=== PATIENT | female | born 1995 | race Caucasian/White ===

== ENCOUNTER 2017-12-04 21:17 | Emergency (ER) | payer OTHER, SELFPAY ==
[2017-12-04 21:20] VITALS: BP 114/70; PULSE 93; RESP 18; TEMP 36.6; O2SAT 100; BMI 22.9
[2017-12-04] MEDS: METOCLOPRAMIDE 10 MG/2 ML INJ IV (22:19)
[2017-12-04] MEDS: SODIUM CHLORIDE 0.9% 1,000 ML 1000 ML IV (22:19)
[2017-12-04 22:20] LABS: Add Manual Diff / Slide Review NO; Basophils Percent Auto 0.8 % (0-2); Hematocrit 37.1 % (36-46); Hemoglobin 12.8 g/dL (12.0-16.0); Lymphocytes Percent Auto 23.6 % (25-40); Mean Corpuscular HGB Conc 34.5 % (30-36); Mean Corpuscular Hemoglobin 26.3 PG (26-34); Mean Corpuscular Volume 76.4 fL (80-100); Monocytes Percent Auto 8.1 % (3-14); Neutrophils Absolute Auto 6500 /uL (3000-5900); Neutrophils Percent Auto 66.5 % (50-75); Platelet Count 236 X10^3/uL (150-400); Red Blood Cell Count 4.86 X10^6/uL (4.0-5.2); Red Cell Distribution Width 12.9 % (11.6-14.8); White Blood Cell Count 9.8 X10^3/uL (4.5-11.0)
[2017-12-04 22:31] LABS: Alanine Aminotransferase 45 IU/L (9-52); Albumin 3.8 g/dL (3.5-5.0); Alkaline Phosphatase 147 U/L (38-126); Aspartate Aminotransferase 36 IU/L (14-36); BUN Creatinine Ratio 12.5 (6-22); Bilirubin Total 0.4 mg/dL (0.2-1.3); Calcium 9.3 mg/dL (8.4-10.2); Estimated Glomerular Filt Rate > 60.0 mL/min (>60); Globulin 3.8 g/dL (1.7-4.1); Glucose 78 mg/dL (70-100); HEMOLYSIS < 15 (0-50); Lipase 135 U/L (23-300); Potassium 3.6 mmol/L (3.4-5.1); Sodium 141 mmol/L (137-145); Total Protein 7.6 g/dL (6.3-8.2)
--- NOTE | 2017-12-04 22:55 | ED_ITS ---
HPI - Abdominal Pain General Chief Complaint: Abdominal Pain Stated Complaint: STOMACH PAIN Time Seen by Provider: 12/04/17 21:24 History of Present Illness HPI narrative: HPI 22-year-old at 32 weeks gestation presents for evaluation of 3 months of progressive mild early satiety and sensation of epigastric fullness. Patient continues to take PO, notes gradually increasing discomfort with taking PO, and continues pass flatus and stool at baseline. Denies urinary frequency, dysuria, and is under the active care of her WORK DISTRIBUTOR. Patient has had recent prior ultrasound imaging of her abdomen without interval change in symptoms. [facility] imaging reviewed and notable for abdominal ultrasound dated 10/21/17: * Mild right hydronephrosis, likely related to . No left hydronephrosis. No findings to explain epigastric and left flank pain. * Pancreas: visualize portions of the pancreas aren't sonographically normal. * Gallbladder: no gallstones. No gallbladder wall thickening, pericholecystic fluid or sonographic Egan son. * Liver is normal in size and homogeneous and echo texture. * Spleen is normal in size and homogeneous and echo texture. M/S/F/SocHx notable for: please see HPI; remainder reviewed with patient and in chart. ROS: Negative constitutional, eye, cardiovascular, pulmonary, GI, , MSK, skin , neurologic, psychiatric, endocrine unless noted in the HPI. Exam Gen: Pleasant, non-toxic appearing, resting comfortably. HEENT: NC, AT, PEERL, EOMI. Resp: Clear to auscultation bilaterally, normal work of breathing, no accessory muscle usage. Card: Regular rate and rhythm with no murmurs, rubs, or gallops, extremities warm and well perfused. GI: mild epigastric tenderness, otherwise non-tender to palpation throughout all quadrants, no focal tenderness at McBurney's point, negative Egan's sign, non-distended, no rebound or guarding. : No suprapubic tenderness to palpation. MSK: No visible deformities, strength and tone without visually appreciable deficit. No chest wall tenderness palpation. Skin: Normal color with no visible lesions. Neuro: AO x 3, no facial asymmetry, vision and hearing WNL. Psych: Mood and affect appropriate. Labs / Imaging: WBC 9.8, Hb 12.8, Na 141, K 3.6, total bilirubin 0.4, AST 36, ALT 45, alkaline phosphatase 147, lipase 135 MDM Previous chart, nursing note, labs, imaging, and vitals reviewed. A: 22-year-old at 32 weeks gestation presents for evaluation of 3 months of progressive mild early satiety and sensation of epigastric fullness. DDx: biliary disease (cholelithiasis, choledocholithiasis, cholecystitis, cholangitis), pancreatitis, mass, gastroparesis, delayed gastric emptying secondary to , gastritis, GERD Evaluation: patient with nonsurgical abdominal exam, labs WNL, recent imaging ( reassuringly without interval change in symptoms) without identifiable acute intra-abdominal pathology. Patient given Reglan without appreciable symptom change. Recommended smaller meals, supplementation with insurer, and follow-up with her WORK DISTRIBUTOR. Impression: early satiety in (please reference below for remainder of encounter information) Related Data Home Medications Medication Instructions Recorded Confirmed vit-iron fum-folic ac 1 cap PO QPM #0 09/18/16 [Mynatal] omeprazole 20 mg PO BID #0 10/21/17 polyethylene glycol 3350 [Miralax] 17 gm PO QDAY #0 10/21/17 Allergies Allergy/AdvReac Type Severity Reaction Status Date / Time No Known Drug Allergies Allergy Verified 12/04/17 21:33 [facility] Surgical History Status post delivery (05/28/14) Exam Initial Vital Signs Initial Vital Signs: Vital Signs Temperature 97.9 F 12/04/17 21:20 Pulse Rate 93 H 12/04/17 21:20 Respiratory Rate 18 12/04/17 21:20 Blood Pressure 114/70 12/04/17 21:20 Pulse Oximetry 100 12/04/17 21:20 Course Orders Ordered: ED Orders 12/04/17 22:10 Complete Blood Count AUTO DIFF Stat Comprehensive Metabolic Panel Stat Lipase Stat Discontinued Medications Sodium Chloride (Normal Saline 0.9%) 1,000 mls @ 1,000 mls/hr IV BOLUS ONE Stop: 12/04/17 22:45 Last Admin: 12/04/17 22:19 Dose: 1,000 mls/hr Metoclopramide HCl (Reglan) 10 mg IV NOW ONE Stop: 12/04/17 21:47 Last Admin: 12/04/17 22:19 Dose: 10 mg Vital Signs - 8 hr 12/04/17 21:20 Temperature 97.9 F Pulse Rate 93 H Respiratory Rate 18 Blood Pressure 114/70 Pulse Oximetry 100 MDM - Abdominal Pain Lab Data Result diagrams: 12/04/17 22:10 12/04/17 22:10 Lab Results 12/04/17 12/04/17 Range/Units 22:10 22:10 WBC 9.8 (4.5-11.0) X10^3/uL RBC 4.86 (4.0-5.2) X10^6/uL Hgb 12.8 (12.0-16.0) g/dL Hct 37.1 (36-46) % MCV 76.4 L (80-100) fL MCH 26.3 (26-34) PG MCHC 34.5 (30-36) % RDW 12.9 (11.6-14.8) % Plt Count 236 (150-400) X10^3/uL Neut % (Auto) 66.5 (50-75) % Lymph % (Auto) 23.6 L (25-40) % [place] % (Auto) 8.1 (3-14) % Eos % (Auto) 1.0 L (2-4) % Baso % (Auto) 0.8 (0-2) % Neut # (Auto) 6500 H (1430-7569) /uL Sodium 141 (137-145) mmol/L Potassium 3.6 (3.4-5.1) mmol/L Chloride 104.0 (98-107) mmol/L Carbon Dioxide 24.0 (22-32) mmol/L BUN 5.0 L (7-17) mg/dL Creatinine 0.40 L (0.52-1.04) mg/dL Estimated GFR > 60.0 (>60) mL/min BUN/Creatinine Ratio 12.5 (6-22) Glucose 78 (70-100) mg/dL Calcium 9.3 (8.4-10.2) mg/dL Total Bilirubin 0.4 (0.2-1.3) mg/dL AST 36 (14-36) IU/L ALT 45 (9-52) IU/L Alkaline Phosphatase 147 H (38-126) U/L Total Protein 7.6 (6.3-8.2) g/dL Albumin 3.8 (3.5-5.0) g/dL Globulin 3.8 (1.7-4.1) g/dL Albumin/Globulin Ratio 1.0 (1.0-2.8) Lipase 135 (23-300) U/L Discharge Plan Departure Prescriptions: No Action vit-iron fum-folic ac [Mynatal] 1 EACH capsule 1 cap PO QPM Qty: 0 RF: 0 polyethylene glycol 3350 [Miralax] 17 GM powder in packet 17 gm PO QDAY Qty: 0 RF: 0 omeprazole 40 MG capsule,delayed release(DR/EC) 20 mg PO BID Qty: 0 RF: 0
[2017-12-04 23:11] VITALS: BP 112/69; PULSE 91; RESP 15; O2SAT 98
== END 2017-12-04 23:13 | disposition home or self-care (01) ==
PROVIDERS: Emergency Provider Emergency Medicine; Family Provider Family Medicine; PCP Family Medicine
DX: R68.81 Early satiety (principal); O26.90 Pregnancy related conditions, unspecified, unspecified trimester; Z3A.32 32 weeks gestation of pregnancy
CPT/HCPCS: 36591; 80053; 83690; 85025; 96374; 99282; 99284; J2765

== ENCOUNTER 2017-12-30 11:18 | Outpatient (CLI) | payer OTHER, SELFPAY ==
[2017-12-30 12:22] LABS: Add Manual Diff / Slide Review NO; Basophils Percent Auto 0.5 % (0-2); Hematocrit 37.8 % (36-46); Hemoglobin 12.8 g/dL (12.0-16.0); Lymphocytes Percent Auto 15.9 % (25-40); Mean Corpuscular HGB Conc 33.9 % (30-36); Mean Corpuscular Hemoglobin 26.2 PG (26-34); Mean Corpuscular Volume 77.3 fL (80-100); Monocytes Percent Auto 8.2 % (3-14); Neutrophils Absolute Auto 6400 /uL (3000-5900); Neutrophils Percent Auto 75.4 % (50-75); Platelet Count 213 X10^3/uL (150-400); Red Blood Cell Count 4.88 X10^6/uL (4.0-5.2); Red Cell Distribution Width 13.2 % (11.6-14.8); White Blood Cell Count 8.5 X10^3/uL (4.5-11.0)
[2017-12-30 12:24] LABS: RBC Urine None Seen (0-5/HPF)
[2017-12-30 12:29] LABS: BUN Creatinine Ratio 12.5 (6-22); Blood Urea Nitrogen 5 mg/dL (7-17); Calcium 9.1 mg/dL (8.4-10.2); Carbon Dioxide 21 mmol/L (22-32); Chloride 103 mmol/L (98-107); Estimated Glomerular Filt Rate > 60.0 mL/min (>60); Glucose 79 mg/dL (70-100); HEMOLYSIS < 15 (0-50); Potassium 3.3 mmol/L (3.4-5.1); Sodium 137 mmol/L (137-145)
[2017-12-30 12:41] LABS: Appearance Urine UA CLEAR; Bilirubin Urine UA NEGATIVE (NEGATIVE); Color Urine UA YELLOW; Glucose Urine UA NEGATIVE (Normal); Ketones Urine UA 1+ (NEGATIVE); Leukocyte Esterase Urine UA 1+ (NEGATIVE); Nitrite Urine UA Negative (Negative); Occult Blood Urine UA NEGATIVE (Negative); Protein Urine UA NEGATIVE (Negative); Specific Gravity Urine UA <=1.005 (1.000-1.035); Urobilinogen Urine UA 0.2 E.U./dL (0.2)
[2017-12-30 12:52] LABS: WBC Urine 1-5/HPF (0-5/HPF)
[2017-12-30 12:53] LABS: Bacteria Urine Few (2-10); Culture Indicated Urine Specimen Cultured; Squamous Epithelial Cell Urine 5-10 /HPF
[2017-12-30 13:17] VITALS: BP 107/67; PULSE 100; RESP 18; TEMP 36.1
== END 2017-12-30 13:20 | disposition home or self-care (01) ==
LOC: LABOR 11:26 → OB 01-04 14:17
PROVIDERS: Family Provider Family Medicine; PCP Family Medicine; Visit Provider Family Medicine
DX: Z34.83 Encounter for supervision of other normal pregnancy, third trimester (principal); Z3A.36 36 weeks gestation of pregnancy; R19.7 Diarrhea, unspecified; R52 Pain, unspecified
CPT/HCPCS: 36415; 59025; 59050; 80048; 81001; 85025; 87086; G0378; G0379

== ENCOUNTER 2017-12-31 09:55 | Emergency (ER) | payer OTHER, SELFPAY ==
[2017-12-31 10:02] VITALS: BP 108/79; PULSE 118; RESP 20; TEMP 37; O2SAT 97
--- NOTE | 2017-12-31 11:27 | PC.NURSE ---
To back per charge weigher. Stable and coop with care.
--- NOTE | 2017-12-31 11:38 | ED_ITS ---
HPI - Psych General Chief Complaint: Psychiatric Symptoms Stated Complaint: SUICIDAL THOUGHTS AND DEPRESSION Time Seen by Provider: 12/31/17 11:28 Source: patient Mode of arrival: ambulatory Limitations: no limitations History of Present Illness HPI Narrative: Patient is a 22-year-old female currently 36 weeks feeling some vital and depressed. She does have a longstanding depression. She has been taking fluoxetine during this . In fact it was increased this week. She has also been taking Reglan to help with her stomach which was also increased but just often 1 day this week. Last night she did take and Ambien. She feels extremely groggy this morning and she has never felt of bad as this. She has no specific plan to hurt herself she knows that she does not want to. She was able to tell her mom that she was feeling this way. She had actually does not want to be around her 3-year-old because she keeps crying. She took Benadryl home last week to help her sleep which she said did help her sleep but she was given Ambien and took that instead. She has not been eating or drinking mostly because she feels her stomach does not feel right she has lost 4 lb she has not urinated yet today or had anything to eat today. MD complaint: suicidal ideation, feels depressed and altered mental status Related Data Home Medications Medication Instructions Recorded Confirmed vit-iron fum-folic ac 1 cap PO QPM #0 09/18/16 12/08/17 [Mynatal] omeprazole 20 mg PO BID #0 10/21/17 12/08/17 polyethylene glycol 3350 [Miralax] 17 gm PO QDAY #0 10/21/17 12/08/17 Previous Rx's Medication Instructions Recorded ondansetron 4 mg PO Q6H PRN #30 tab 12/31/17 Allergies Allergy/AdvReac Type Severity Reaction Status Date / Time No Known Drug Allergies Allergy Verified 12/04/17 21:33 Review of Systems Review of Systems All systems reviewed & are unremarkable except as noted in HPI and below Constitutional Denies chills, Reports fatigue, Denies fever(s), Reports lethargy and Reports malaise Cardiovascular Denies chest pain, Denies syncope and Denies lightheadedness Gastrointestinal Gastrointestinal: Reports as per HPI, Reports early satiety, Reports dyspepsia, Reports heartburn, Denies diarrhea and Reports nausea Neurologic Reports confusion and Denies syncope Psychiatric Reports anxiety, Reports confusion, Reports depression, Denies paranoia, Denies homicidal ideation and Reports suicidal ideation Endocrine Reports fatigue [facility] Social History Smoking Status: Never smoker Exam Initial Vital Signs Initial Vital Signs: Vital Signs Temperature 98.6 F 12/31/17 10:02 Pulse Rate 118 H 12/31/17 10:02 Respiratory Rate 20 12/31/17 10:02 Blood Pressure 108/79 12/31/17 10:02 Pulse Oximetry 97 12/31/17 10:02 Const General: cooperative and well developed Nutritional Appearance: well nourished Orientation: alert, awake, oriented x3 and not confused GI Palpation: soft, No guarding and No tender Other: gravid General: No CVA tenderness Skin General: no rashes or lesions noted, No jaundice and No petechiae Psych Appearance: grossly normal Mental Status: mental status grossly normal Speech and Movement: speech and movement normal Mood: congruent mood Affect: normal affect Attitude: cooperative Thought Process: circumstantial Thought Content: suicidality (no specific plan, realizes she doesn't actually want to ) Judgment: judgment good Course Orders Ordered: ED Orders 12/31/17 12:40 Complete Blood Count AUTO DIFF Stat Comprehensive Metabolic Panel Stat 12/31/17 13:30 Urine Culture Stat Urine Microscopic Stat Discontinued Medications Sodium Chloride (Normal Saline 0.9%) 1,000 mls @ 1,000 mls/hr IV BOLUS ONE Stop: 12/31/17 13:32 Last Infusion: 12/31/17 13:40 Dose: 0 mls/hr Admin: 12/31/17 12:45 Dose: 1,000 mls/hr Ondansetron HCl (Zofran Odt) 4 mg PO NOW ONE Stop: 12/31/17 14:08 Last Admin: 12/31/17 14:10 Dose: 4 mg Vital Signs - 8 hr 12/31/17 10:02 12/31/17 13:52 12/31/17 14:18 Temperature 98.6 F Pulse Rate 118 H 71 68 Respiratory Rate 20 16 20 Blood Pressure 108/79 105/58 L Blood Pressure [Left Wrist] 101/63 Pulse Oximetry 97 99 100 MDM - Psych Lab Data Result diagrams: 12/31/17 12:40 06/15/18 12:40 Lab Results 12/31/17 12/31/17 12/31/17 Range/Units 12:40 12:40 13:30 WBC 7.8 (4.5-11.0) X10^3/uL RBC 4.73 (4.0-5.2) X10^6/uL Hgb 12.7 (12.0-16.0) g/dL Hct 36.5 (36-46) % MCV 77.2 L (80-100) fL MCH 26.8 (26-34) PG MCHC 34.7 (30-36) % RDW 13.2 (11.6-14.8) % Plt Count 196 (150-400) X10^3/uL Neut % (Auto) 73.9 (50-75) % Lymph % (Auto) 17.1 L (25-40) % [place] % (Auto) 8.3 (3-14) % Eos % (Auto) 0.2 L (2-4) % Baso % (Auto) 0.5 (0-2) % Neut # (Auto) 5700 (9038-8493) /uL Sodium 138 (137-145) mmol/L Potassium 3.4 (3.4-5.1) mmol/L Chloride 104 (98-107) mmol/L Carbon Dioxide 20 L (22-32) mmol/L BUN 6 L (7-17) mg/dL Creatinine 0.40 L (0.52-1.04) mg/dL Estimated GFR > 60.0 (>60) mL/min BUN/Creatinine Ratio 15.0 (6-22) Glucose 65 L (70-100) mg/dL Calcium 8.9 (8.4-10.2) mg/dL Total Bilirubin 0.8 (0.2-1.3) mg/dL AST 28 (14-36) IU/L ALT 33 (9-52) IU/L Alkaline Phosphatase 184 H (38-126) U/L Total Protein 7.2 (6.3-8.2) g/dL Albumin 3.6 (3.5-5.0) g/dL Globulin 3.6 (1.7-4.1) g/dL Albumin/Globulin Ratio 1.0 (1.0-2.8) Urine RBC None seen (0-5/HPF) Urine WBC 5-10/hpf H (0-5/HPF) Ur Squamous Epith Cells 1-5 /hpf Urine Bacteria Occasional (0-1) (None) Ur Culture Indicated? Specimen cultured Micro UA Comment Not Reportable MDM Narrative Medical decision making narrative: She is able to contract for safety. Our social work has seen spoken with her and given her some resources. I think the Ambien with a big role in how she is feeling today. Though she does have underlying an ongoing depression. I am concerned that she is at risk for depression as well. I stressed that she should get set up with some kind of therapy now. All questions have been addressed patient feels safe going home with her mother all and is given resources as well. Patient also says that she stopped taking her Carafate. I recommend that she start taking her Carafate again to help settle her stomach and allow her to eat. Discharge Plan Departure Patient Disposition: Home, Self-Care Clinical Impression: Depression Discharge Date/Time: 12/31/17 14:24 Interventions: ED Discharge Assessment Last Done: 12/31/17 14:18 Instructions: Depression, Zolpidem Activity Restrictions/Additional Instructions: *You have been diagnosed with depression *What to do: I think your symptoms have been exacerbated by the use of Ambien. Would avoid using this. I recommend Benadryl if needed to sleep. If you are feeling suicidal or having suicidal thoughts: Call: Suicide Hotline: Visit: www.[employer].org Text: 592253 *Continue to take medications as directed -Zofran every 6 hr if needed for nausea or vomiting, this prescription has been sent to [facility] in [place] *Follow up with your primary care provider in 2-3 days *Return to ER if you should have [or] any new, worsening or concerning symptoms Prescriptions: New ondansetron 4 mg tablet,disintegrating 4 mg PO Q6H PRN (Reason: nausea and vomiting) Qty: 30 RF: 0 No Action vit-iron fum-folic ac [Mynatal] 1 EACH capsule 1 cap PO QPM Qty: 0 RF: 0 polyethylene glycol 3350 [Miralax] 17 GM powder in packet 17 gm PO QDAY Qty: 0 RF: 0 omeprazole 40 MG capsule,delayed release(DR/EC) 20 mg PO BID Qty: 0 RF: 0 Referrals: Keagan Hardy MD [Primary Care Provider] -
[2017-12-31] MEDS: SODIUM CHLORIDE 0.9% 1,000 ML 1000 ML IV (12:45)
[2017-12-31 12:52] LABS: Add Manual Diff / Slide Review NO; Basophils Percent Auto 0.5 % (0-2); Eosinophils Percent Auto 0.2 % (2-4); Hematocrit 36.5 % (36-46); Hemoglobin 12.7 g/dL (12.0-16.0); Lymphocytes Percent Auto 17.1 % (25-40); Mean Corpuscular HGB Conc 34.7 % (30-36); Mean Corpuscular Hemoglobin 26.8 PG (26-34); Mean Corpuscular Volume 77.2 fL (80-100); Monocytes Percent Auto 8.3 % (3-14); Neutrophils Absolute Auto 5700 /uL (3000-5900); Neutrophils Percent Auto 73.9 % (50-75); Platelet Count 196 X10^3/uL (150-400); Red Blood Cell Count 4.73 X10^6/uL (4.0-5.2); Red Cell Distribution Width 13.2 % (11.6-14.8); White Blood Cell Count 7.8 X10^3/uL (4.5-11.0)
[2017-12-31 13:03] LABS: Alanine Aminotransferase 33 IU/L (9-52); Albumin 3.6 g/dL (3.5-5.0); Alkaline Phosphatase 184 U/L (38-126); Aspartate Aminotransferase 28 IU/L (14-36); Bilirubin Total 0.8 mg/dL (0.2-1.3); Blood Urea Nitrogen 6 mg/dL (7-17); Calcium 8.9 mg/dL (8.4-10.2); Carbon Dioxide 20 mmol/L (22-32); Chloride 104 mmol/L (98-107); Estimated Glomerular Filt Rate > 60.0 mL/min (>60); Globulin 3.6 g/dL (1.7-4.1); Glucose 65 mg/dL (70-100); HEMOLYSIS < 15 (0-50); Potassium 3.4 mmol/L (3.4-5.1); Sodium 138 mmol/L (137-145); Total Protein 7.2 g/dL (6.3-8.2)
[2017-12-31 13:52] VITALS: BP 101/63; PULSE 71; RESP 16; O2SAT 99
[2017-12-31] MEDS: ONDANSETRON 4 MG ODT PO (14:10)
--- NOTE | 2017-12-31 14:13 | PC.NURSE ---
platform worker s/w pt to see if any needs
[2017-12-31 14:18] VITALS: BP 105/58; PULSE 68; RESP 20; O2SAT 100
[2017-12-31 14:27] LABS: RBC Urine None Seen (0-5/HPF)
[2017-12-31 14:28] LABS: Bacteria Urine Occasional (0-1); Culture Indicated Urine Specimen Cultured; Squamous Epithelial Cell Urine 1-5 /HPF; WBC Urine 5-10/HPF (0-5/HPF)
== END 2017-12-31 14:24 | disposition home or self-care (01) ==
PROVIDERS: Emergency Provider Emergency Medicine; Family Provider Family Medicine; PCP Family Medicine
DX: O99.343 Other mental disorders complicating pregnancy, third trimester (principal); F32.9 Major depressive disorder, single episode, unspecified; Z3A.36 36 weeks gestation of pregnancy
CPT/HCPCS: 36591; 80053; 81003; 81015; 85025; 87086; 96360; 99283

== ENCOUNTER → 2018-01-03 16:44 | Outpatient (REF) | payer OTHER, SELFPAY | LOC: LAB 16:44 | PROVIDERS: Family Provider Family Medicine; PCP Family Medicine; Visit Provider Family Medicine | DX: Z34.90 Encounter for supervision of normal pregnancy, unspecified, unspecified trimester (principal) | CPT/HCPCS: 87081 ==

== ENCOUNTER 2018-01-04 12:33 | Observation (INO) | payer OTHER, SELFPAY ==
--- NOTE | 2018-01-04 12:48 | DI.US.S_ITS ---
PROCEDURE: US OB LIMITED INDICATIONS: growth OUTSIDE/PRIOR DATING DATA: Last menstrual period (LMP): 04/16/17. LMP-based estimated date of delivery (STEFF): 01/21/18. First dating scan (date and location): 06/08/17. Estimated date of delivery (STEFF) from first dating scan: 01/27/18. TECHNIQUE: Real-time scanning was performed of the fetus, with image documentation and biometric measurements. Endovaginal scanning: Not needed for this study COMPARISON: [facility], ABDOMEN COMPLETE, 10/21/2017, 11:42. [facility], OBSTETRICAL LTD, 10/01/2017, 12:24. [facility], OB COMPLETE 14WKS OR MORE, 09/09/2017, 8:14. [facility], OBSTETRICAL LTD, 06/25/2017, 17:15. [facility], OB COMPLETE 14WKS OR MORE, 06/08/2017, 11:08. [facility], OB LIMITED, 12/08/2017, 7:55. FINDINGS: General: A single living intrauterine gestation is present. Presentation: Vertex. Placenta: Placental position is posterior , without previa. Amniotic fluid index: 20.6 cm, normal range is 5-24 cm. heart rate: 143 beats per minute. biometrics: Biparietal diameter: 8.9 cm, 36 weeks 1 day Head circumference: 32.2 cm, 36 weeks 2 days Abdominal circumference: 32.3 cm, 36 weeks 1 day Femur length: The 6.8 cm, 34 weeks 6 days Estimated gestational age from initial scan: 36 weeks 5 days Composite gestational age from present scan: 36 weeks 6 days Estimated weight and percentile: 2793 g, 32nd percentile Measurement variability for biometric dating: +/- 7 days from 14 weeks to 15 weeks 6 days gestation, +/- 10 days from 16 weeks to 21 weeks 6 days gestation, +/- 2 weeks from 22 weeks to 27 weeks 6 days gestation, +/- 3 weeks for 28 weeks gestation or later. weight reference: 4500 g or EFW >90/95% is considered macrosomia or large for gestational age. EFW <10% is small for gestational age. EFW 5% or less is considered intra-uterine growth restriction. Other: Not applicable. IMPRESSION: Appropriate interval growth, no anomaly is suspected. Amniotic fluid index is normal. The delivery date is projected to be centered on 01/27/18. Dictated by: Nick Reeder M.D. on 01/04/2018 at 14:19 Approved by: Nick Reeder M.D. on 01/04/2018 at 14:22
[2018-01-04] MEDS: LACTATED RINGERS 1,000 ML 1000 ML IV (13:20)
[2018-01-04] MEDS: SUCRALFATE 1 GM/10 ML ORAL SUSP PO (13:57)
[2018-01-04] MEDS: METOCLOPRAMIDE HCL 5 MG TABLET PO (13:57)
== END 2018-01-04 14:50 | disposition home or self-care (01) ==
PROVIDERS: Admitting Provider Family Medicine; Family Provider Family Medicine; PCP Family Medicine; Visit Provider Family Medicine
DX: O36.8130 Decreased fetal movements, third trimester, not applicable or unspecified (principal); Z3A.36 36 weeks gestation of pregnancy
CPT/HCPCS: 59025; 76815; 84112; 96360; G0378; G0379

== ENCOUNTER 2018-01-07 20:08 | Observation (INO) | payer OTHER, SELFPAY ==
[2018-01-07] MEDS: LACTATED RINGERS 1,000 ML 1000 ML IV (21:10)
== END 2018-01-07 22:35 | disposition home or self-care (01) ==
LOC: LABOR 20:12
PROVIDERS: Admitting Provider Family Medicine; Family Provider Family Medicine; PCP Family Medicine; Visit Provider Family Medicine
DX: O36.8130 Decreased fetal movements, third trimester, not applicable or unspecified (principal); Z3A.36 36 weeks gestation of pregnancy
CPT/HCPCS: 59025; 96360; G0378; G0379

== ENCOUNTER 2018-01-13 05:40 | Inpatient (IN) | payer OTHER, SELFPAY ==
[2018-01-13] VITALS (7 sets, daily range): BP systolic 77–142; BP diastolic 38–96; PULSE 65–72; RESP 15–19; TEMP 36–36.8; O2SAT 98–100
[2018-01-13] MEDS: LACTATED RINGERS 1,000 ML 400 ML IV ×2 (06:00→08:57)
[2018-01-13 06:43] LABS: Add Manual Diff / Slide Review NO; Basophils Percent Auto 0.5 % (0-2); Eosinophils Percent Auto 0.3 % (2-4); Hemoglobin 12.7 g/dL (12.0-16.0); Mean Corpuscular HGB Conc 34.4 % (30-36); Mean Corpuscular Hemoglobin 26.6 PG (26-34); Mean Corpuscular Volume 77.5 fL (80-100); Neutrophils Absolute Auto 3800 /uL (3000-5900); Neutrophils Percent Auto 65.2 % (50-75); Platelet Count 208 X10^3/uL (150-400); Red Blood Cell Count 4.77 X10^6/uL (4.0-5.2); Red Cell Distribution Width 13.4 % (11.6-14.8); White Blood Cell Count 5.9 X10^3/uL (4.5-11.0)
[2018-01-13] MEDS: LACTATED RINGERS 1,000 ML 100 ML IV (07:00)
--- NOTE | 2018-01-13 07:47 | P.HPOB_ITS ---
OB HPI History of Present Illness Chief complaint: [id number] Narrative: Harper Moore is a 22 year old female who presents for repeat section. Patient has had a complicated and difficult . Started with abdominal pain around 20 weeks. Was unable to keep much food down. Weight gain has been minimal specifically with some weight loss over the last 4-6 weeks. Ultrasounds have been normal. She has been on reflux precautions PPIs Carafate and Reglan. She had a scope which showed duodenal irritation approximately 30 weeks. Has been difficult to control and has had minimal intake. Borderline donned hydrated throughout most of the . Patient over the last 6-8 weeks probably with a combination of being and with her abdominal pain has become increasingly anxious depressed. She was began on citalopram approximately 6 weeks ago. She did not really want to stay on that would like to switch to Prozac was switched to Prozac she had been on that for approximately 10 days when she presented to the emergency room with suicidal ideations. She was evaluated and felt to be safe was sent home. I had seen her approximately 2 and half weeks ago when she was continuing to be suicidal. I discussed case with psychiatrist who at that time recommended admission. We had re-evaluated her 24 hr later and she was felt to be safe. She did not have any active plan and had good support at home. Continued to discuss with the psychiatrist. She seems to slowly improved and now that we have set up her she seems better. Psychiatrist feels the best course of action is to deliver nun deal with her on the other side. Knowing there is some risk of depression patient currently is anxious but less depressed. Does not have suicidal ideations but last week did. No plan. Good support at. Patient has had a history of anxiety but not depression. She was treated with Prozac in the past. No family history of such. Patient has had no leaking fluid. No bleeding. No complications. Ultrasound showed a small infant without any other changes. labs otherwise unremarkable. She is B positive. Antibody screen negative. She had a genetic screen which was normal. Showed a male . No other significant changes or problems or glucose test was Patient's previous [id number] weeks for failure to progress 7 lb 14 oz female Other past medical history negative. Medications Prozac 20 mg q.day. 40 mg omeprazole. Carafate 1 g q.i.d.. Allergies none. Past surgical history as above. Evaluation Evaluation Laboratory results: Laboratory Tests 01/13/18 01/13/18 06:15 06:15 WBC 5.9 RBC 4.77 Hgb 12.7 Hct 37.0 MCV 77.5 L MCH 26.6 MCHC 34.4 RDW 13.4 Plt Count 208 Neut % (Auto) 65.2 Lymph % (Auto) 24.0 L [place] % (Auto) 10.0 Eos % (Auto) 0.3 L Baso % (Auto) 0.5 Neut # (Auto) 3800 Blood Type B Positive Antibody Screen Negative [facility] Social History Smoking Status: Never smoker Meds Home Medications Medication Instructions Recorded Confirmed Type vit-iron fum-folic ac 1 cap PO QPM #0 09/18/16 01/13/18 History [Mynatal] omeprazole 20 mg PO BID #0 10/21/17 01/13/18 History fluoxetine [Prozac] 40 mg PO DAILY 01/07/18 01/13/18 History metoclopramide HCl [Reglan] 5 mg PO PRN PRN 01/07/18 01/13/18 History sucralfate [Carafate] 5 ml PO TID 01/07/18 01/13/18 History Allergies Allergy/AdvReac Type Severity Reaction Status Date / Time No Known Drug Allergies Allergy Verified 12/04/17 21:33 Exam Narrative Exam Narrative: Alert female in no acute distress. Lungs are clear. Heart regular rate and rhythm. Abdomen is soft positive bowel sounds nontender. Gravid. Vertex. Estimated weight 6 and 0.5 lb. Extremities without cyanosis clubbing edema. Neurologic exam is normal. Today she is interactive and smiling. Good eye contact. Objective Labs Result Diagrams: 01/13/18 06:15 Labs: Laboratory Results - last 24 hr 01/13/18 01/13/18 06:15 06:15 WBC 5.9 RBC 4.77 Hgb 12.7 Hct 37.0 MCV 77.5 L MCH 26.6 MCHC 34.4 RDW 13.4 Plt Count 208 Neut % (Auto) 65.2 Lymph % (Auto) 24.0 L [place] % (Auto) 10.0 Eos % (Auto) 0.3 L Baso % (Auto) 0.5 Neut # (Auto) 3800 Blood Type B Positive Antibody Screen Negative Assessment and Plan Plan: Plan: With the long discussions with psychiatrist. Due to her complicated history their recommendation is for delivery and then to deal with her on individual basis once her. Baby is not round. No other changes. Patient otherwise has no significant new changes or complaints. We will proceed for section and watch closely continue her usual medicines ending dictation
[2018-01-13] MEDS: CITRIC ACID/SODIUM CITRATE 30 ML SOLUTION PO (07:50)
[2018-01-13] MEDS: CEFOTETAN 2 GM/50 ML PIGGYBACK IV (08:05)
--- NOTE | 2018-01-13 08:46 | SUR.OPER ---
Supine on Padded OR bed, head on pillow, safety belt at thigh, arms secured on padded arm boards at <90 degrees abduction. Bump under right buttock. Legs uncrossed with pillow under knees, gel pad to heels, tape over blanket to lower legs.
[2018-01-13] MEDS: ACETAMINOPHEN IV 1,000 MG/100 ML VIAL 400 MG IV (08:50)
--- NOTE | 2018-01-13 08:54 | SUR.OPER ---
PLACENTA AND CORD BLOOD LABELED AND SENT WITH L&D NURSE
[2018-01-13] MEDS: ONDANSETRON 4 MG/2 ML INJ IV (09:26)
--- NOTE | 2018-01-13 09:26 | PM.OP.1 ---
Operative Date/Time/Diagnoses - Date of procedure: 01/13/18 Time of procedure: 09:26 Pre-op diagnosis: Thirty-eight week intrauterine , severe depression, abdominal pain Post-op diagnosis: same Procedure & Clinicians Procedure: Secondary low transverse section Same procedure as scheduled: Yes Indications: A 38 week intrauterine with severe depression with recommendation for delivery by psychiatrist. Abdominal pain. See H&P. Surgeon: Keagan Hardy Nurse Orthopaedic: Tatum Domingo Anesthesia Type: Spinal and Epidural Operative Notes Findings: Viable male infant weighing 2923 g Apgars 9 and 9 normal pelvic organs Closure Type: primary Specimen(s): none sent Applied: catheter Estimated Blood Loss (mL): 350 Procedure in detail: Patient was taken to the operative theater after rediscussion of consent. Questions answered. Place on the operative table. Scopes procedure was followed. Spinal was placed by anesthesia without complications. Placed in the supine which position. Prepped and draped in usual manner. Pfannenstiel incision was made with sharp dissection down to the fascia. Blunt dissection fascia was removed. Under direct visualization fascia was then extended laterally with scissors. Jonathon was used to elevate the fascia and blunt dissection off the muscle layer superiorly. Same cyst inferior but sharp dissection was done. Muscle layer was easily and entered peritoneum was identified and bluntly entered and extended. Bladder blade was placed. Bladder flap was then incised and developed. Bladder blade was then placed into the bladder flap. Uterine wall is very thin. Incision was then scored and then carried down to fluid. Slight meconium. Uterine incision was extended. Baby was delivered vertex bulb suctioned and crying less tele. No resuscitation was required. Placenta was then removed manually. Two wet laps wounds were used to clear the products of conception. Corners of the uterine incision and the graft along with inferior aspect. Bladder blade was placed. Ring forceps was then passed through the cervix. Handed off the operative theater. Bleeding was minimal. Locked 0 chromic was used to close 1st layer of uterus with excellent hemostasis. Imbricating stitch was then done with 0 chromic. Bladder blade was removed. Irrigation was then done. Removed. No bleeding was noted. Bladder flap was then closed with III 0 Vicryl. 2 0 Vicryl was used to close the peritoneum. Fascia was closed with running 1 Vicryl. 330 interrupted sutures were used to approximate the subcutaneous tissue after irrigation. Skin was closed with running for all Vicryl suture subcuticular. Steri-Strips and 4x4s were applied. All needle counts sponge and instrument counts were collected mother were in stable condition. Complications: none Condition: stable Disposition: Acute Care Plan for aftercare: To recovery
--- NOTE | 2018-01-13 09:53 | SUR.PHASEI ---
REPORT CALLED TO [facility] AT 0940. PT IN STABLE CONDITION, VSS. IV SITE CLEAR AND INFUSING WITHOUT DIFFICULTLY. PT SITTING UP IN BED AND TALKING TO RN. DRSG TO STOMACH OBSERVED TO BE C/D/I. KALEB-PAD VAGINALLY OBSERVED TO HAVE NO CHANGE IN DRAINAGE AMOUNT. CATHETER SECURE AND DRAINING CLEAR YELLOW URINE. PT TRANSPORTED TO , TALKING AND ALERT. BEDSIDE REPORT GIVEN TO VAL SUAREZ. PT FAMILY AT BEDSIDE. TRANSFERED CARE OF PT TO [facility] SUAREZ.
[2018-01-13] MEDS: DEXTROSE 5%-LACTATED RINGERS 1,000 ML 125 ML IV ×2 (11:29→20:32)
[2018-01-13] MEDS: KETOROLAC 30 MG/ML VIAL IV ×2 (15:40→21:28)
[2018-01-13] MEDS: PANTOPRAZOLE 40 MG TABLET PO (21:01)
[2018-01-14] MEDS: KETOROLAC 30 MG/ML VIAL IV (03:23)
[2018-01-14] MEDS: diphenhydrAMINE 50 MG/ML VIAL 25 MG IV (03:33)
[2018-01-14 06:51] LABS: Add Manual Diff / Slide Review NO; Basophils Percent Auto 0.2 % (0-2); Eosinophils Percent Auto 0.1 % (2-4); Hematocrit 34.4 % (36-46); Hemoglobin 11.8 g/dL (12.0-16.0); Lymphocytes Percent Auto 8.5 % (25-40); Mean Corpuscular HGB Conc 34.4 % (30-36); Mean Corpuscular Hemoglobin 26.4 PG (26-34); Mean Corpuscular Volume 76.8 fL (80-100); Monocytes Percent Auto 7.6 % (3-14); Neutrophils Absolute Auto 7400 /uL (3000-5900); Neutrophils Percent Auto 83.6 % (50-75); Platelet Count 185 X10^3/uL (150-400); Red Blood Cell Count 4.47 X10^6/uL (4.0-5.2); Red Cell Distribution Width 13.6 % (11.6-14.8); White Blood Cell Count 8.9 X10^3/uL (4.5-11.0)
[2018-01-14] MEDS: SUCRALFATE 1 GM/10 ML ORAL SUSP PO (07:37)
[2018-01-14] MEDS: IBUPROFEN 600 MG TABLET PO ×2 (09:23→15:45)
[2018-01-14] MEDS: HYDROCODONE/ACET 5/325 TABLET 1 TAB PO ×3 (09:25→18:37)
[2018-01-14] MEDS: FLUoxetine 20 MG CAPSULE PO (09:26)
[2018-01-14] MEDS: PANTOPRAZOLE 40 MG TABLET PO (09:26)
--- NOTE | 2018-01-14 17:42 | P.DS_ITS ---
History of Present Illness Chief complaint: [id number] Discharge Providers Date of admission: 01/13/18 05:40 Primary care physician: Keagan Hardy MD Consults: 01/13/18 09:47 Consult to Emergency Department Nurse Routine Comment: Discharge provider: Chasidy Marcos MD Summary Discharge Diagnosis: Status post repeat elective section Depression, improved Peptic ulcer disease Hospital Course: Patient was brought in for elective repeat at 38 weeks due to decompensation of depression. was performed and patient did excellent. On day 1. She was ambulating without difficulty and doing self-care with minimal lochia and good pain control. She was tolerating p.o. without any difficulties. She is urinating without difficulties and is passing flatus. She denies any acute depression or anxiety. She would like to go home because she is able to sleep at home but not able to sleep any place cells. Status at Discharge Functional status at discharge: independent ambulation Overall status at discharge: patient is back to baseline Time Spent with Patient Greater than 30 minutes Exam Vital Signs (past 8 hours): Oxygen Delivery Method Room Air Narrative Exam Narrative: T afebrile vital signs are stable Patient is alert and oriented x3 in no apparent distress HEENT: Unremarkable Chest: Clear to auscultation bilaterally Cor: Regular rate and rhythm without murmur Abdomen: Positive bowel sounds, soft, nontender, uterus is firm and below the umbilicus, incision is clean and dry Extremities: No edema DTRs are 2+ bilaterally Objective Labs Result Diagrams: 01/14/18 06:30 Labs: Laboratory Results - last 24 hr 01/14/18 06:30 WBC 8.9 D RBC 4.47 Hgb 11.8 L Hct 34.4 L MCV 76.8 L MCH 26.4 MCHC 34.4 RDW 13.6 Plt Count 185 Neut % (Auto) 83.6 H Lymph % (Auto) 8.5 L [place] % (Auto) 7.6 Eos % (Auto) 0.1 L Baso % (Auto) 0.2 Neut # (Auto) 7400 H Discharge Plan Discharge Plan Patient Disposition: Home, Self-Care Discharge Med Rec/Prescriptions Prescriptions: New hydrocodone-acetaminophen 5-325 mg Tablet 2 tab PO Q4HR PRN (Reason: Pain, Severe (7-10)) Qty: 40 RF: 1 ibuprofen 600 mg Tablet 600 mg PO Q6HR PRN (Reason: As Needed For Fever/Mild Pain) Qty: 60 RF: 1 Continue vit-iron fum-folic ac [Mynatal] 1 EACH capsule 1 cap PO QPM Qty: 0 RF: 0 omeprazole 40 MG capsule,delayed release(DR/EC) 20 mg PO BID Qty: 0 RF: 0 sucralfate [Carafate] 100 mg/mL suspension 5 ml PO TID RF: 0 fluoxetine [Prozac] 40 mg capsule 40 mg PO DAILY RF: 0 metoclopramide HCl [Reglan] 5 mg tablet 5 mg PO PRN PRN (Reason: Abdominal Discomfort) RF: 0 Provider Discharge Instructions Diet: Diet as Tolerated Activity: No heavy lifting greater than baby. No crunches, squats. Pelvic rest. keep incision clean and dry Wound Care Report to your healthcare provider any signs of infection, such as:: chills, fever, night sweats, increased pain and unusual drainage Dressing: Steri-Strips Discharge Data Primary Care Provider: Keagan Hardy Attending Provider: Keagan Hardy Admit Date/Time: 01/13/18 05:40
== END 2018-01-14 18:55 | disposition home or self-care (01) | DRG 766 ==
PROVIDERS: Admitting Provider Family Medicine; Family Provider Family Medicine; PCP Family Medicine; Visit Provider Family Medicine
PROC: 10D00Z1 Extraction of Products of Conception, Low, Open Approach (ICD-10-PCS; CPT 59514; principal; 2018-01-13 07:45)
DX: O99.344 Other mental disorders complicating childbirth (principal); O34.219 Maternal care for unspecified type scar from previous cesarean delivery; Z3A.38 38 weeks gestation of pregnancy; Z37.0 Single live birth; F32.9 Major depressive disorder, single episode, unspecified; F41.9 Anxiety disorder, unspecified; R10.9 Unspecified abdominal pain
CPT/HCPCS: 36415; 59050; 85025; 86850; 86900; 86901; J0131; J1200; J1885; J2274; J2405; J2590; J7121

== ENCOUNTER 2018-01-17 17:25 | Inpatient (IN) | payer OTHER, SELFPAY ==
[2018-01-17] VITALS (11 sets, daily range): BP systolic 97–157; BP diastolic 65–104; PULSE 71–115; RESP 16–22; TEMP 36.3–36.4; O2SAT 97–99
[2018-01-17] MEDS: SODIUM CHLORIDE 0.9% 1,000 ML 1000 ML IV (18:26)
[2018-01-17 18:27] LABS: Add Manual Diff / Slide Review NO; Basophils Percent Auto 0.5 % (0-2); Eosinophils Percent Auto 0.8 % (2-4); Hematocrit 34.9 % (36-46); Hemoglobin 11.9 g/dL (12.0-16.0); Lymphocytes Percent Auto 17.1 % (25-40); Mean Corpuscular Hemoglobin 26.4 PG (26-34); Mean Corpuscular Volume 77.6 fL (80-100); Monocytes Percent Auto 8.5 % (3-14); Neutrophils Absolute Auto 5300 /uL (3000-5900); Neutrophils Percent Auto 73.1 % (50-75); Platelet Count 258 X10^3/uL (150-400); Red Blood Cell Count 4.49 X10^6/uL (4.0-5.2); Red Cell Distribution Width 13.7 % (11.6-14.8); White Blood Cell Count 7.2 X10^3/uL (4.5-11.0)
[2018-01-17 18:39] LABS: BUN Creatinine Ratio 11.7 (6-22); Blood Urea Nitrogen 7 mg/dL (7-17); Calcium 9.1 mg/dL (8.4-10.2); Carbon Dioxide 27 mmol/L (22-32); Chloride 102 mmol/L (98-107); Estimated Glomerular Filt Rate > 60.0 mL/min (>60); Glucose 91 mg/dL (70-100); HEMOLYSIS < 15 (0-50); Potassium 3.3 mmol/L (3.4-5.1); Sodium 140 mmol/L (137-145)
--- NOTE | 2018-01-17 18:57 | DI.RAD.S_ITS ---
PROCEDURE: XR CHEST 1V INDICATIONS: headache TECHNIQUE: One view of the chest was acquired. COMPARISON: None. FINDINGS: Surgical changes and devices: None. Lungs and pleura: No pleural effusions or pneumothorax. Lungs are clear. Mediastinum: Mediastinal contours appear normal. Heart size is normal. Bones and chest wall: No suspicious bony lesions. Overlying soft tissues appear unremarkable. IMPRESSION: Normal for age. Source of current symptoms is not seen. Dictated by: Nick Reeder M.D. on 01/17/2018 at 20:14 Approved by: Nick Reeder M.D. on 01/17/2018 at 20:14
--- NOTE | 2018-01-17 18:58 | DI.CT.S_ITS ---
PROCEDURE: CT HEAD/BRAIN WO CON INDICATIONS: severe GRAY w/ preeclampsia TECHNIQUE: Noncontrast 4.5 mm thick angled axial sections acquired from the foramen magnum to the vertex, with coronal and sagittal reformats. For radiation dose reduction, the following was used: automated exposure control, adjustment of mA and/or kV according to patient size. COMPARISON: None. FINDINGS: Image quality: Excellent. CSF spaces: Basal cisterns are patent. No extra-axial fluid collections. Ventricles are normal in size and shape. Brain: No midline shift. No intracranial masses or hemorrhage. [place]-white matter interface is normal. Skull and face: Calvarium and visualized facial bones are intact, without suspicious lesions. Sinuses: Visualized sinuses and mastoids are clear. IMPRESSION: No hemorrhage found, source of severe headache is not identified. Dictated by: Nick Reeder M.D. on 01/17/2018 at 20:02 Approved by: Nick Reeder M.D. on 01/17/2018 at 20:02
[2018-01-17] MEDS: LABETALOL 20 MG/4 ML SYRINGE 10 MG IV ×2 (19:42→22:03)
[2018-01-17] MEDS: MAGNESIUM SULFATE 2 GM/50 ML PIGGYBACK IV (19:43)
[2018-01-17] MEDS: MAGNESIUM SULFATE 4 GM/100 ML PIGGYBACK IV (19:43)
[2018-01-17] MEDS: ONDANSETRON 4 MG/2 ML INJ IV (20:04)
[2018-01-17] MEDS: MAGNESIUM SULFATE 20 GM/500 ML IV.SOLN IV (20:13)
--- NOTE | 2018-01-17 20:16 | PC.NURSE ---
pt had difficulty tolerating mag loading dose. pt reported feeling very hot and uncomfortable. pt given ice pack, cold washrag and cold po fluids. pt reports headache is mostly resolved. reports a maybe 1. pt reports being unable to walk due to the effects of mag. she states I dont think I will be ok walking. WIDE AREA NETWORK ADMINISTRATOR helping pt onto bedpan.
[2018-01-17 20:18] LABS: D Dimer 2111 ng/mL (<230)
[2018-01-17 20:23] LABS: Alanine Aminotransferase 32 IU/L (9-52); Albumin 3.6 g/dL (3.5-5.0); Alkaline Phosphatase 159 U/L (38-126); Aspartate Aminotransferase 28 IU/L (14-36); BUN Creatinine Ratio 13.3 (6-22); Bilirubin Total 0.6 mg/dL (0.2-1.3); Blood Urea Nitrogen 8 mg/dL (7-17); Calcium 9.1 mg/dL (8.4-10.2); Carbon Dioxide 27 mmol/L (22-32); Chloride 103 mmol/L (98-107); Estimated Glomerular Filt Rate > 60.0 mL/min (>60); Globulin 3.6 g/dL (1.7-4.1); Glucose 92 mg/dL (70-100); HEMOLYSIS < 15 (0-50); Lipase 69 U/L (23-300); Magnesium 1.7 mg/dL (1.6-2.3); Potassium 3.3 mmol/L (3.4-5.1); Sodium 141 mmol/L (137-145); Total Protein 7.2 g/dL (6.3-8.2)
[2018-01-17 20:30] LABS: Bacteria Urine None Seen
[2018-01-17 20:35] LABS: Appearance Urine UA CLEAR; Bilirubin Urine UA NEGATIVE (NEGATIVE); Color Urine UA YELLOW; Glucose Urine UA NEGATIVE (Normal); Ketones Urine UA TRACE (NEGATIVE); Leukocyte Esterase Urine UA NEGATIVE (NEGATIVE); Nitrite Urine UA Negative (Negative); Occult Blood Urine UA 3+ (Negative); Protein Urine UA NEGATIVE (Negative); Specific Gravity Urine UA 1.015 (1.000-1.035); Urobilinogen Urine UA 0.2 E.U./dL (0.2); pH Urine UA 7.5 (4.5-8.0)
[2018-01-17 20:37] LABS: Troponin I < 0.012 ng/mL (0.01-0.034)
[2018-01-17 20:41] LABS: Protein (Total) Urine Random 16 mg/dL (0-12)
[2018-01-17 20:42] LABS: Culture Indicated Urine Cult Not Indicated; RBC Urine 5-10/HPF (0-5/HPF); Squamous Epithelial Cell Urine 0-1 /HPF; WBC Urine 0-1/HPF (0-5/HPF)
--- NOTE | 2018-01-17 20:59 | PC.NURSE ---
pt appears to be more comfortable. pt able to rest calmly on stretcher. pt states i feel way better and less anxious, thank you. pt does not need cold packs or cold cloth on head to feel comfortable anymore. pt family and child are at bedside. mag drip infusing.
[2018-01-17 21:04] LABS: Lactate Dehydrogenase 604 U/L (313-618)
--- NOTE | 2018-01-17 21:05 | DI.CT.S_ITS ---
PROCEDURE: CT HEAD/BRAIN WO/W CON INDICATIONS: post- GRAY - needs CT venogram to evaluate for sinus TECHNIQUE: 1 mm thick angled axial sections acquired from the foramen magnum to the vertex before and after the administration of intravenous contrast, with coronal and sagittal reformats. For radiation dose reduction, the following was used: automated exposure control, adjustment of mA and/or kV according to patient size. COMPARISON: None. FINDINGS: Image quality: Excellent. CSF Spaces: Basal cisterns are patent. No extra-axial fluid collections. Ventricles are normal in size and shape. Brain: No midline shift. No intracranial bleeds or masses. No abnormal intracranial enhancement. [place]-white interface appears normal. No arterial focal stenosis or occlusion is seen. There is a dominant left vertebral artery. The dural sinuses are within normal limits and contrast opacified/patent. Skull and face: Calvarium and visualized facial bones appear intact, without suspicious lesions. Sinuses: Visualized sinuses and mastoids are clear. IMPRESSION: Normal CTA. Normal CT venogram appearance. Dictated by: Nakul Aponte M.D. on 01/18/2018 at 7:36 Approved by: Nakul Aponte M.D. on 01/18/2018 at 7:42
[2018-01-17] MEDS: KETOROLAC 60 MG/2 ML VIAL 15 MG IV (22:12)
[2018-01-17] MEDS: diphenhydrAMINE 50 MG/ML VIAL 25 MG IV (22:13)
[2018-01-17] MEDS: PROCHLORPERAZINE 10 MG/2 ML VIAL IV (22:16)
--- NOTE | 2018-01-17 22:32 | PC.NURSE ---
pt reports feeling difficulty breathing. states im gonna pass out. provider notified.
--- NOTE | 2018-01-17 22:33 | PC.NURSE ---
pt blood pressure not responding to labetalol. bp continues to climb into the 140s/90s. provider notified, order for nacardapine recieved.
[2018-01-17 22:45] LABS: Magnesium 1.7 mg/dL (1.6-2.3)
[2018-01-17] MEDS: NICARDIPINE 25 MG in SODIUM CHLORIDE 0.9% 240 ML 50 ML IV (22:46)
--- NOTE | 2018-01-17 22:51 | PC.NURSE ---
nicardapine running at 50ml/hr
--- NOTE | 2018-01-17 22:53 | PC.NURSE ---
headache s/p c section delivery 4 days ago. elevated bp
--- NOTE | 2018-01-17 23:05 | ED_ITS ---
HPI - Headache General Chief Complaint: Headache Stated Complaint: HEADACHE Time Seen by Provider: 01/17/18 17:42 History of Present Illness HPI Narrative: HPI 22-year-old presents 4 days post presents hypertensive with with 18-24 hours of severe right-sided posterior headache; gestational history notable for induction for preeclampsia on her first . Patient reports that she has been without fevers, chills, changes in vision or hearing, cough, shortness breath, and that her site is healing well. Patient is bottle feeding. Patient states that her headache is unlike any prior headache. * Denies changes in vision or hearing, fevers, neck stiffness, rashes, neck pain , temporal pain, jaw pain with chewing, dental pain, minor neck trauma, chiropractic manipulation, or head trauma. * Denies anticoagulation or hypercoaguable history. * No family members with similar symptoms. Unable to identify any higher risk exposures to possible carbon monoxide. M/S/F/SocHx notable for: please see HPI; remainder reviewed with patient and in chart. ROS: Negative constitutional, eye, cardiovascular, pulmonary, GI, , MSK, skin , neurologic, psychiatric, endocrine unless noted in the HPI. Exam Gen: pleasant, appears markedly uncomfortable, crying, answering appropriately and interacting appropriately. HEENT: NC, AT, TMs clear bilaterally without effusions, erythema, or lesions, preauricular, pinna, and external canal skin without lesions. Dentition intact without visible caries. No paraspinal posterior neck pain. Resp: CTAB Card: RRR, bedside ultrasound with subxiphoid view without right heart strain. GI: NT/ND : well healing horizontal midline lower abdominal incision. No significant tenderness palpation. MSK: No visible deformities, strength and tone WNL. Skin: Normal color with no visible lesions. Neuro: Gen AO x 3, no facial asymmetry, no gaze preference, no slurring of speech. CN II-III: pupils equal and reactive (for->2mm bilaterally); III, IV, : EOMI, V1-V3: sensation to touch bilaterally intact; VII: no facial asymmetry ( frown / smile); VIII: no nystagmus; X: phonation intact, uvula midline; XI: trapezius 5/5 bilaterally, XII: tongue midline. Psych: Mood and affect appropriate.[ Labs / Imaging (pertinent): WBC 7.2, Hb 11.9, PLT 258, Na 140, K 3.3, creatinine 0.60, BUN 7, AST 20, ALT 32 , ALP 159, total bilirubin 0.6, troponin <0.012, BNP 130, lipase 69 UA - negative nitrate, negative leukocyte esterase, 5-10 RBCs, 0-1 squamous epithelial cells, no bacteria. Protein 16, creatinine 8.0, protein/creatinine 2.00 D-dimer 2111 CT head: no hemorrhage found, source as severe headache is not identified. CXR: no acute cardiopulmonary disease process. CTA brain: normal CT angiogram of the brain. Normal CT venogram. LDH 604. MDM Previous chart, nursing note, and vitals reviewed. A: 22-year-old presents 4 days post presents hypertensive with with 18-24 hours of severe right-sided posterior headache; gestational history notable for induction for preeclampsia on her first . DDx: migraine / tension headache, cluster headache, sentinel bleed/SAH, infection (CONTACT CLERK vs GRAY secondary to non-CONTACT CLERK focal infection), tumor/mass effect, hypertensive encephalopathy, glaucoma or iritis, idiopathic intracranial hypertension, cavernous sinus thrombosis, temporal arteritis. Evaluation: patient hypertensive on screening vitals (SBP > 160, now absent from chart), repeat BP by myself at time of examination at 167/106. Given history preeclampsia, delivery 4 days ago, new onset severe headache that is new in nature, and repeat blood pressures with a SBP > 160, strongly suspect preeclampsia. 6 g magnesium over 20 minutes followed by a 2 g/hr gtt ordered. Labetalol 10 mg IV ordered. This was followed by a labetalol PRN with the goal SBP of less than or equal to 120 mm Hg. Given these symptoms , as well as a protein to creatinine ratio well in excess of preeclampsia diagnostic requirements suspect the patient's preeclampsia. A d-dimer was ordered in attempt to rule out a sinus thrombosis (NPV of 99.8%), this was ordered and the full knowledge that would likely be falsely positive due to the patient's recent . Unfortunately this is positive. The subsequent CT venogram was also unremarkable. There is difficulty in controlling the patient's blood pressure labetalol, this was switched to nicardipine. Blood pressure control was achieved the patient had resolution of her headache. Patient was admitted to the ICU for further care. Discussed case with Dr. Hardy accepted the patient , added on uric acid and AM labs were ordered. Impression: preeclampsia (please reference below for remainder of encounter information) Critical Care Time Organ system(s): CONTACT CLERK Intervention: Assessment of the patient, interpretation of studies, communication related to patient care. Time: 75 minutes were spent directly related to patient care exclusive of separately billed procedures. Related Data Home Medications Medication Instructions Recorded Confirmed vit-iron fum-folic ac 1 cap PO QPM #0 09/18/16 01/17/18 [Mynatal] omeprazole 20 mg PO BID #0 10/21/17 01/17/18 fluoxetine [Prozac] 40 mg PO DAILY 01/07/18 01/17/18 metoclopramide HCl [Reglan] 5 mg PO PRN PRN 01/07/18 01/17/18 sucralfate [Carafate] 5 ml PO TID 01/07/18 01/17/18 Previous Rx's Medication Instructions Recorded hydrocodone-acetaminophen 2 tab PO Q4HR PRN #40 tab 01/14/18 ibuprofen 600 mg PO Q6HR PRN #60 tab 01/14/18 Allergies Allergy/AdvReac Type Severity Reaction Status Date / Time No Known Drug Allergies Allergy Verified 12/04/17 21:33 [facility] Social History Smoking Status: Never smoker Exam Initial Vital Signs Initial Vital Signs: Vital Signs Temperature 97.6 F 01/17/18 17:28 Pulse Rate 71 01/17/18 17:28 Respiratory Rate 20 01/17/18 17:28 Blood Pressure 157/104 H 01/17/18 17:28 Pulse Oximetry 99 01/17/18 17:28 Course Orders Ordered: ED Orders 01/17/18 18:15 Basic Metabolic Panel Stat Complete Blood Count AUTO DIFF Stat 01/17/18 18:57 XR chest 1V Stat 01/17/18 18:58 CT head/brain wo con Stat 01/17/18 20:03 D Dimer Stat 01/17/18 20:07 B Type Natriuretic Peptide Stat Comprehensive Metabolic Panel Stat Lactate Dehydrogenase Stat Lipase Stat Magnesium Stat Magnesium Stat Troponin I Stat 01/17/18 20:22 Protein Creatinine Ratio Urine Stat Urinalysis and Microscopic Stat 01/17/18 21:05 CT head/brain wo/w con Stat 01/17/18 22:25 EKG-12 Lead Stat Magnesium Sulfate (Magnesium Sulfate) 20 gm in 500 mls @ 50 mls/hr IV CONT DEEPIKA Last Admin: 01/17/18 20:13 Dose: 50 mls/hr Nicardipine HCl 25 mg/ Sodium (Chloride) 250 mls @ 50 mls/hr IV TITRATE DEEPIKA; Protocol Last Admin: 01/17/18 22:46 Dose: 5 mg/hr, 50 mls/hr Labetalol HCl (Trandate) 10 mg IV Q20MIN PRN PRN Reason: Heart Rate- High Last Admin: 01/17/18 22:03 Dose: 10 mg Ondansetron HCl (Zofran) 4 mg IV Q4HR PRN PRN Reason: Nausea And Vomiting Last Admin: 01/17/18 20:04 Dose: 4 mg Discontinued Medications Diphenhydramine HCl (Benadryl) 25 mg IV NOW ONE Stop: 01/17/18 21:31 Last Admin: 01/17/18 22:13 Dose: 25 mg Fentanyl (Sublimaze) 50 mcg IV NOW ONE Stop: 01/17/18 19:01 Sodium Chloride (Normal Saline 0.9%) 1,000 mls @ 1,000 mls/hr IV BOLUS ONE Stop: 01/17/18 18:42 Last Infusion: 01/17/18 20:11 Dose: 0 mls/hr Admin: 01/17/18 18:26 Dose: 1,000 mls/hr Magnesium Sulfate (Magnesium Sulfate) 4 gm in 100 mls @ 300 mls/hr IV NOW ONE Stop: 01/17/18 19:17 Last Infusion: 01/17/18 20:10 Dose: 0 mls/hr Admin: 01/17/18 19:43 Dose: 300 mls/hr Magnesium Sulfate (Magnesium Sulfate) 2 gm in 50 mls @ 150 mls/hr IV NOW ONE Stop: 01/17/18 19:18 Last Infusion: 01/17/18 20:10 Dose: 0 mls/hr Admin: 01/17/18 19:43 Dose: 150 mls/hr Ketorolac Tromethamine (Toradol) 15 mg IV NOW ONE Stop: 01/17/18 21:31 Last Admin: 01/17/18 22:12 Dose: 15 mg Labetalol HCl (Trandate) 10 mg IV NOW ONE Stop: 01/17/18 18:59 Last Admin: 01/17/18 19:42 Dose: 10 mg Prochlorperazine (Compazine) 10 mg IV NOW ONE Stop: 01/17/18 21:31 Last Admin: 01/17/18 22:16 Dose: 10 mg Vital Signs - 8 hr 01/17/18 17:28 01/17/18 20:14 01/17/18 20:45 Temperature 97.6 F Pulse Rate 71 87 77 Respiratory Rate 20 22 Blood Pressure 157/104 H 124/78 H Blood Pressure [Right Arm] 147/87 H Pulse Oximetry 99 98 01/17/18 20:56 01/17/18 21:59 01/17/18 22:03 Temperature Pulse Rate 76 91 H 82 Respiratory Rate 16 18 Blood Pressure 134/90 H Blood Pressure [Right Arm] 130/86 H 140/86 H Pulse Oximetry 98 98 01/17/18 22:16 01/17/18 22:28 01/17/18 22:50 Temperature Pulse Rate 82 96 H 101 H Respiratory Rate 17 18 Blood Pressure 137/87 H Blood Pressure [Right Arm] 134/72 H 117/79 Pulse Oximetry 98 97 01/17/18 22:51 Temperature Pulse Rate Respiratory Rate Blood Pressure Blood Pressure [Right Arm] 117/79 Pulse Oximetry MDM - Headache Lab Data Result diagrams: 01/17/18 18:15 01/17/18 20:07 Lab Results 01/17/18 01/17/18 01/17/18 Range/Units 18:15 18:15 20:03 WBC 7.2 (4.5-11.0) X10^3/uL RBC 4.49 (4.0-5.2) X10^6/uL Hgb 11.9 L (12.0-16.0) g/dL Hct 34.9 L (36-46) % MCV 77.6 L (80-100) fL MCH 26.4 (26-34) PG MCHC 34.0 (30-36) % RDW 13.7 (11.6-14.8) % Plt Count 258 (150-400) X10^3/uL Neut % (Auto) 73.1 (50-75) % Lymph % (Auto) 17.1 L (25-40) % [place] % (Auto) 8.5 (3-14) % Eos % (Auto) 0.8 L (2-4) % Baso % (Auto) 0.5 (0-2) % Neut # (Auto) 5300 (7314-2549) /uL D-Dimer 2111 H (<230) ng/mL Sodium 140 (137-145) mmol/L Potassium 3.3 L (3.4-5.1) mmol/L Chloride 102 (98-107) mmol/L Carbon Dioxide 27 (22-32) mmol/L BUN 7 (7-17) mg/dL Creatinine 0.60 (0.52-1.04) mg/dL Estimated GFR > 60.0 (>60) mL/min BUN/Creatinine Ratio 11.7 (6-22) Glucose 91 (70-100) mg/dL Calcium 9.1 (8.4-10.2) mg/dL Magnesium (1.6-2.3) mg/dL Total Bilirubin (0.2-1.3) mg/dL AST (14-36) IU/L ALT (9-52) IU/L Alkaline Phosphatase (38-126) U/L Lactate Dehydrogenase (313-618) U/L Troponin I (0.01-0.034) ng/mL B-Natriuretic Peptide (<100) Total Protein (6.3-8.2) g/dL Albumin (3.5-5.0) g/dL Globulin (1.7-4.1) g/dL Albumin/Globulin Ratio (1.0-2.8) Lipase (23-300) U/L Urine Color Urine Appearance Urine pH (4.5-8.0) Ur Specific [place] (1.000-1.035) Urine Protein (Negative) Urine Glucose (UA) (Normal) g/dL Urine Ketones (NEGATIVE) Urine Occult Blood (Negative) Urine Nitrate (Negative) Urine Bilirubin (NEGATIVE) Urine Urobilinogen (0.2) E.U./dL Ur Leukocyte Esterase (NEGATIVE) Urine RBC (0-5/HPF) Urine WBC (0-5/HPF) Ur Squamous Epith Cells Urine Bacteria (None) Ur Culture Indicated? Micro UA Comment U Random Total Protein (0-12) mg/dL Urine Creatinine mg/dL Protein/Creatinin Ratio GRAM/24H 01/17/18 01/17/18 01/17/18 Range/Units 20:07 20:07 20:07 WBC Cancelled (4.5-11.0) X10^3/uL RBC Cancelled (4.0-5.2) X10^6/uL Hgb Cancelled (12.0-16.0) g/dL Hct Cancelled (36-46) % MCV Cancelled (80-100) fL MCH Cancelled (26-34) PG MCHC Cancelled (30-36) % RDW Cancelled (11.6-14.8) % Plt Count Cancelled (150-400) X10^3/uL Neut % (Auto) Cancelled (50-75) % Lymph % (Auto) Cancelled (25-40) % [place] % (Auto) Cancelled (3-14) % Eos % (Auto) Cancelled (2-4) % Baso % (Auto) Cancelled (0-2) % Neut # (Auto) Cancelled (7310-5945) /uL D-Dimer (<230) ng/mL Sodium 141 (137-145) mmol/L Potassium 3.3 L (3.4-5.1) mmol/L Chloride 103 (98-107) mmol/L Carbon Dioxide 27 (22-32) mmol/L BUN 8 (7-17) mg/dL Creatinine 0.60 (0.52-1.04) mg/dL Estimated GFR > 60.0 (>60) mL/min BUN/Creatinine Ratio 13.3 (6-22) Glucose 92 (70-100) mg/dL Calcium 9.1 (8.4-10.2) mg/dL Magnesium 1.7 (1.6-2.3) mg/dL Total Bilirubin 0.6 (0.2-1.3) mg/dL AST 28 (14-36) IU/L ALT 32 (9-52) IU/L Alkaline Phosphatase 159 H (38-126) U/L Lactate Dehydrogenase 604 (313-618) U/L Troponin I < 0.012 (0.01-0.034) ng/mL B-Natriuretic Peptide 130.0 H (<100) Total Protein 7.2 (6.3-8.2) g/dL Albumin 3.6 (3.5-5.0) g/dL Globulin 3.6 (1.7-4.1) g/dL Albumin/Globulin Ratio 1.0 (1.0-2.8) Lipase 69 (23-300) U/L Urine Color Urine Appearance Urine pH (4.5-8.0) Ur Specific [place] (1.000-1.035) Urine Protein (Negative) Urine Glucose (UA) (Normal) g/dL Urine Ketones (NEGATIVE) Urine Occult Blood (Negative) Urine Nitrate (Negative) Urine Bilirubin (NEGATIVE) Urine Urobilinogen (0.2) E.U./dL Ur Leukocyte Esterase (NEGATIVE) Urine RBC (0-5/HPF) Urine WBC (0-5/HPF) Ur Squamous Epith Cells Urine Bacteria (None) Ur Culture Indicated? Micro UA Comment U Random Total Protein (0-12) mg/dL Urine Creatinine mg/dL Protein/Creatinin Ratio GRAM/24H 01/17/18 01/17/18 01/17/18 Range/Units 20:07 20:22 20:22 WBC (4.5-11.0) X10^3/uL RBC (4.0-5.2) X10^6/uL Hgb (12.0-16.0) g/dL Hct (36-46) % MCV (80-100) fL MCH (26-34) PG MCHC (30-36) % RDW (11.6-14.8) % Plt Count (150-400) X10^3/uL Neut % (Auto) (50-75) % Lymph % (Auto) (25-40) % [place] % (Auto) (3-14) % Eos % (Auto) (2-4) % Baso % (Auto) (0-2) % Neut # (Auto) (6194-0230) /uL D-Dimer (<230) ng/mL Sodium (137-145) mmol/L Potassium (3.4-5.1) mmol/L Chloride (98-107) mmol/L Carbon Dioxide (22-32) mmol/L BUN (7-17) mg/dL Creatinine (0.52-1.04) mg/dL Estimated GFR (>60) mL/min BUN/Creatinine Ratio (6-22) Glucose (70-100) mg/dL Calcium (8.4-10.2) mg/dL Magnesium 1.7 (1.6-2.3) mg/dL Total Bilirubin (0.2-1.3) mg/dL AST (14-36) IU/L ALT (9-52) IU/L Alkaline Phosphatase (38-126) U/L Lactate Dehydrogenase (313-618) U/L Troponin I (0.01-0.034) ng/mL B-Natriuretic Peptide (<100) Total Protein (6.3-8.2) g/dL Albumin (3.5-5.0) g/dL Globulin (1.7-4.1) g/dL Albumin/Globulin Ratio (1.0-2.8) Lipase (23-300) U/L Urine Color Yellow Urine Appearance Clear Urine pH 7.5 (4.5-8.0) Ur Specific [place] 1.015 (1.000-1.035) Urine Protein Negative (Negative) Urine Glucose (UA) Negative (Normal) g/dL Urine Ketones Trace H (NEGATIVE) Urine Occult Blood 3+ H (Negative) Urine Nitrate Negative (Negative) Urine Bilirubin Negative (NEGATIVE) Urine Urobilinogen 0.2 (0.2) E.U./dL Ur Leukocyte Esterase Negative (NEGATIVE) Urine RBC 5-10/hpf H (0-5/HPF) Urine WBC 0-1/hpf (0-5/HPF) Ur Squamous Epith Cells 0-1 /hpf Urine Bacteria None seen (None) Ur Culture Indicated? Cult not indicated Micro UA Comment Not Reportable U Random Total Protein 16 H (0-12) mg/dL Urine Creatinine 8.0 mg/dL Protein/Creatinin Ratio 2.00 GRAM/24H Discharge Plan Departure Prescriptions: No Action vit-iron fum-folic ac [Mynatal] 1 EACH capsule 1 cap PO QPM Qty: 0 RF: 0 omeprazole 40 MG capsule,delayed release(DR/EC) 20 mg PO BID Qty: 0 RF: 0 hydrocodone-acetaminophen 5-325 mg Tablet 2 tab PO Q4HR PRN (Reason: Pain, Severe (7-10)) Qty: 40 RF: 1 ibuprofen 600 mg Tablet 600 mg PO Q6HR PRN (Reason: As Needed For Fever/Mild Pain) Qty: 60 RF: 1 sucralfate [Carafate] 100 mg/mL suspension 5 ml PO TID RF: 0 fluoxetine [Prozac] 40 mg capsule 40 mg PO DAILY RF: 0 metoclopramide HCl [Reglan] 5 mg tablet 5 mg PO PRN PRN (Reason: Abdominal Discomfort) RF: 0
--- NOTE | 2018-01-17 23:37 | PC.NURSE ---
pt remains comfortable and is now attempting to sleep. BP 113/65
[2018-01-18] VITALS (21 sets, daily range): BP systolic 97–160; BP diastolic 38–107; PULSE 66–118; RESP 14–108; TEMP 36.6–37.2; O2SAT 97–98; BMI 19.6
[2018-01-18] MEDS: SODIUM CHLORIDE 0.9% 1,000 ML 125 ML IV (04:24)
[2018-01-18 05:34] LABS: Add Manual Diff / Slide Review NO; Basophils Percent Auto 0.4 % (0-2); Eosinophils Percent Auto 0.3 % (2-4); Hematocrit 36.3 % (36-46); Hemoglobin 12.2 g/dL (12.0-16.0); Lymphocytes Percent Auto 12.4 % (25-40); Mean Corpuscular HGB Conc 33.5 % (30-36); Mean Corpuscular Volume 77.6 fL (80-100); Monocytes Percent Auto 8.2 % (3-14); Neutrophils Absolute Auto 6400 /uL (3000-5900); Neutrophils Percent Auto 78.7 % (50-75); Platelet Count 293 X10^3/uL (150-400); Red Blood Cell Count 4.67 X10^6/uL (4.0-5.2); Red Cell Distribution Width 13.2 % (11.6-14.8); White Blood Cell Count 8.1 X10^3/uL (4.5-11.0)
[2018-01-18 05:44] LABS: Prothrombin Time 10.7 SECONDS (10.1-12.7)
[2018-01-18 05:52] LABS: Alanine Aminotransferase 27 IU/L (9-52); Albumin 3.6 g/dL (3.5-5.0); Alkaline Phosphatase 178 U/L (38-126); Aspartate Aminotransferase 25 IU/L (14-36); BUN Creatinine Ratio 7.5 (6-22); Bilirubin Total 0.6 mg/dL (0.2-1.3); Blood Urea Nitrogen 3 mg/dL (7-17); Calcium 6.8 mg/dL (8.4-10.2); Carbon Dioxide 25 mmol/L (22-32); Chloride 104 mmol/L (98-107); Estimated Glomerular Filt Rate > 60.0 mL/min (>60); Globulin 3.5 g/dL (1.7-4.1); Glucose 109 mg/dL (70-100); HEMOLYSIS < 15 (0-50); Potassium 2.9 mmol/L (3.4-5.1); Sodium 139 mmol/L (137-145); Total Protein 7.1 g/dL (6.3-8.2)
[2018-01-18] MEDS: POTASSIUM CHLORIDE 20 MEQ TAB 40 MEQ PO (06:55)
--- NOTE | 2018-01-18 07:26 | PC.ADMIT ---
[id number] [facility] Unit 15 Admission Note: The patient,Harper Moore,22 y/o, was given written information regarding hospital policies, unit procedures and contact persons. Patient's smoking status: Never smoker. Vital Signs - 8 hr 01/17/18 23:50 01/18/18 00:00 01/18/18 00:07 Temperature 97.3 F L Pulse Rate 115 H 115 H 107 H Respiratory Rate 20 22 Blood Pressure 97/65 97/65 115/57 L Pulse Oximetry 97 97 01/18/18 01:00 01/18/18 02:00 01/18/18 03:00 Temperature Pulse Rate 102 H 94 H 107 H Respiratory Rate 14 15 14 Blood Pressure 116/58 L 105/54 L 111/53 L Pulse Oximetry 97 97 97 01/18/18 04:17 01/18/18 05:00 01/18/18 06:03 Temperature 98.2 F 98 F Pulse Rate 100 H 104 H 99 H Respiratory Rate 20 18 16 Blood Pressure 119/56 L 113/59 L 124/58 H Pulse Oximetry 98 97 98 2350-Admitted to ICU. A/Ox3, anxious, Mom staying in room. ST 120s, initial admit BP 97/65(76) with Nicardipine gtt at 25mg/hr(50ml/hr), Gtt stopped, Mg+ sulfate infusing at 50ml/hr as ordered. NS @ 125ml/hr. Denies headache. See assessment notes.
[2018-01-18] MEDS: POTASSIUM CHLORIDE IN WATER 40 MEQ/400 ML PIGGYBACK 100 MEQ IV (07:39)
--- NOTE | 2018-01-18 07:40 | PC.NURSE ---
Dr Hardy notified in am of critical Mg+ 6.0 and K+ 2.9, updated him about BP and current Nicardipine at 1.5mg/hr. Mg+ gtt stopped at this time, order received to restart at 1gm/hr in 2hrs. Also give 40meq PO K+ chloride and 40meq K+ rider. Pain has had no pain or headache, has been up to BR frequently, voided 1900ml clear urine total.
--- NOTE | 2018-01-18 08:16 | PM.HP.1 ---
History of Present Illness Date Patient Seen: 01/18/18 Time Patient Seen: 08:16 Chief complaint: HEADACHE Narrative: Patient is a 22-year-old female well known to me who presents with primarily headache. Patient is 4 days. Was delivered by for multiple issues primarily depression and abdominal pain. Patient had become actively suicidal during the last 2 weeks of her . She had had a very difficult secondary to abdominal pain which was poorly controlled secondary to multiple medicines including Reglan Carafate and Prilosec. She had been scoped at 30 weeks and found to have duodenal irritation but no ulcer or other changes. She was began on antidepressants approximately a month prior to delivery. She had been increasingly despondent and with psychiatric discussion she had been delivered at 38 weeks. Delivery and went well there been no complications. She had had no previous elevation of blood pressures or previous hypertension or other issues. Patient had been seen at mid clinic yesterday complaining of a headache. At that time it seemed to be worse or at least dizzy when she stood up. But was worse when she lay down and had more problems. She had no other changes. No visual changes. No swelling. Had been urinating okay. No abdominal pain or other changes. Her exam at that time was normal. Her blood pressure was normal for her in the 120s over 70s to 8 low 80s. She had called in saying her headache was worse and she was sent to the emergency room at the time I thought she probably had a spinal headache. She was brought into the emergency room at which point apparently she was with significant elevation in her blood pressure. Labs were all normal she did have some protein in her urine. She was began on labetalol and then on nicardipine drip and blood pressure is well controlled. Headache was improved. She was began on magnesium. Today she feels much better. Having decreased headache. No other changes. Patient's depression has been somewhat better. She is overall feeling less depressed. Just fatigue. Having no other significant change no abdominal pain. Headache is much improved. No visual changes. Review of systems is otherwise negative. Past medical history is significant for depression. Anxiety. Past surgical history is significant for x2. Family history no preeclampsia. No problems. No other issues. No heart disease. Social history lives with and other child. Good [facility] family support. Habits no smoking or alcohol. Denies active drug use Patient History Family & Social History Social History: household members spouse,children Prior Living Arrangements Mobile home Safety & Behavioral: Feels Safe in Current No Environment Been Physically Hurt or No Threatened By a Person Suicidal Ideation Description None Suicide Plan Description No Plan Tobacco & Substance use: Smoking Status Never smoker alcohol intake never alcohol intake frequency 0-2 drinks per day Substance Use Type does not use Meds Home Medications Medication Instructions Recorded Confirmed Type vit-iron fum-folic ac 1 cap PO QPM #0 09/18/16 01/17/18 History [Mynatal] omeprazole 20 mg PO BID #0 10/21/17 01/17/18 History fluoxetine [Prozac] 40 mg PO DAILY 01/07/18 01/17/18 History metoclopramide HCl [Reglan] 5 mg PO PRN PRN 01/07/18 01/17/18 History sucralfate [Carafate] 5 ml PO TID 01/07/18 01/17/18 History hydrocodone-acetaminophen 2 tab PO Q4HR PRN #40 tab 01/14/18 01/17/18 Rx ibuprofen 600 mg PO Q6HR PRN #60 tab 01/14/18 01/17/18 Rx Allergies Allergy/AdvReac Type Severity Reaction Status Date / Time No Known Drug Allergies Allergy Verified 12/04/17 21:33 Review of Systems Review of Systems All systems reviewed & are unremarkable except as noted in HPI and below Exam Vital Signs (past 8 hours): - 01/18/18 01:00 01/18/18 02:00 01/18/18 03:00 Temperature Pulse Rate 102 H 94 H 107 H Respiratory Rate 14 15 14 Blood Pressure 116/58 L 105/54 L 111/53 L Pulse Oximetry 97 97 97 01/18/18 04:17 01/18/18 05:00 01/18/18 06:03 Temperature 98.2 F 98 F Pulse Rate 100 H 104 H 99 H Respiratory Rate 20 18 16 Blood Pressure 119/56 L 113/59 L 124/58 H Pulse Oximetry 98 97 98 01/18/18 07:39 01/18/18 08:04 Temperature 98.9 F Pulse Rate 108 H Respiratory Rate 17 108 H Blood Pressure 131/72 H 122/91 H Pulse Oximetry 97 Oxygen Delivery Method Room Air Narrative Exam Narrative: Alert thin female in no acute distress mildly anxious in appearance. Pupils are equal and responsive to light Discs are not well seen. Mucous membranes are moist. Neck supple without adenopathy. Lungs are clear. Heart regular rate and rhythm without murmurs clicks rubs or gallops. Abdomen is soft positive bowel sounds no pedal splenomegaly or tenderness. Incision is well healed. No uterine tenderness. Extremities without cyanosis clubbing edema. 2+ reflexes bilaterally 2 beats of clonus. She is nonfocal. Moving everything interactive. Anxious in attitude. Objective Labs Result Diagrams: 01/18/18 04:38 01/18/18 04:38 Labs: Laboratory Results - last 24 hr 01/17/18 01/17/18 01/17/18 18:15 18:15 20:03 WBC 7.2 RBC 4.49 Hgb 11.9 L Hct 34.9 L MCV 77.6 L MCH 26.4 MCHC 34.0 RDW 13.7 Plt Count 258 Neut % (Auto) 73.1 Lymph % (Auto) 17.1 L [place] % (Auto) 8.5 Eos % (Auto) 0.8 L Baso % (Auto) 0.5 Neut # (Auto) 5300 PT INR D-Dimer 2111 H Sodium 140 Potassium 3.3 L Chloride 102 Carbon Dioxide 27 BUN 7 Creatinine 0.60 Estimated GFR > 60.0 BUN/Creatinine Ratio 11.7 Glucose 91 Uric Acid Calcium 9.1 Magnesium Total Bilirubin AST ALT Alkaline Phosphatase Lactate Dehydrogenase Troponin I B-Natriuretic Peptide Total Protein Albumin Globulin Albumin/Globulin Ratio Lipase Urine Color Urine Appearance Urine pH Ur Specific [place] Urine Protein Urine Glucose (UA) Urine Ketones Urine Occult Blood Urine Nitrate Urine Bilirubin Urine Urobilinogen Ur Leukocyte Esterase Urine RBC Urine WBC Ur Squamous Epith Cells Urine Bacteria Ur Culture Indicated? Micro UA Comment U Random Total Protein Urine Creatinine Protein/Creatinin Ratio Nasal Screen MRSA (PCR) 01/17/18 01/17/18 01/17/18 20:07 20:07 20:07 WBC Cancelled RBC Cancelled Hgb Cancelled Hct Cancelled MCV Cancelled MCH Cancelled MCHC Cancelled RDW Cancelled Plt Count Cancelled Neut % (Auto) Cancelled Lymph % (Auto) Cancelled [place] % (Auto) Cancelled Eos % (Auto) Cancelled Baso % (Auto) Cancelled Neut # (Auto) Cancelled PT INR D-Dimer Sodium 141 Potassium 3.3 L Chloride 103 Carbon Dioxide 27 BUN 8 Creatinine 0.60 Estimated GFR > 60.0 BUN/Creatinine Ratio 13.3 Glucose 92 Uric Acid Calcium 9.1 Magnesium 1.7 Total Bilirubin 0.6 AST 28 ALT 32 Alkaline Phosphatase 159 H Lactate Dehydrogenase 604 Troponin I < 0.012 B-Natriuretic Peptide 130.0 H Total Protein 7.2 Albumin 3.6 Globulin 3.6 Albumin/Globulin Ratio 1.0 Lipase 69 Urine Color Urine Appearance Urine pH Ur Specific [place] Urine Protein Urine Glucose (UA) Urine Ketones Urine Occult Blood Urine Nitrate Urine Bilirubin Urine Urobilinogen Ur Leukocyte Esterase Urine RBC Urine WBC Ur Squamous Epith Cells Urine Bacteria Ur Culture Indicated? Micro UA Comment U Random Total Protein Urine Creatinine Protein/Creatinin Ratio Nasal Screen MRSA (PCR) 01/17/18 01/17/18 01/17/18 20:07 20:07 20:22 WBC RBC Hgb Hct MCV MCH MCHC RDW Plt Count Neut % (Auto) Lymph % (Auto) [place] % (Auto) Eos % (Auto) Baso % (Auto) Neut # (Auto) PT INR D-Dimer Sodium Potassium Chloride Carbon Dioxide BUN Creatinine Estimated GFR BUN/Creatinine Ratio Glucose Uric Acid 3.0 Calcium Magnesium 1.7 Total Bilirubin AST ALT Alkaline Phosphatase Lactate Dehydrogenase Troponin I B-Natriuretic Peptide Total Protein Albumin Globulin Albumin/Globulin Ratio Lipase Urine Color Urine Appearance Urine pH Ur Specific [place] Urine Protein Urine Glucose (UA) Urine Ketones Urine Occult Blood Urine Nitrate Urine Bilirubin Urine Urobilinogen Ur Leukocyte Esterase Urine RBC Urine WBC Ur Squamous Epith Cells Urine Bacteria Ur Culture Indicated? Micro UA Comment U Random Total Protein 16 H Urine Creatinine 8.0 Protein/Creatinin Ratio 2.00 Nasal Screen MRSA (PCR) 01/17/18 01/18/18 01/18/18 20:22 00:00 04:38 WBC 8.1 RBC 4.67 Hgb 12.2 Hct 36.3 MCV 77.6 L MCH 26.0 MCHC 33.5 RDW 13.2 Plt Count 293 Neut % (Auto) 78.7 H Lymph % (Auto) 12.4 L [place] % (Auto) 8.2 Eos % (Auto) 0.3 L Baso % (Auto) 0.4 Neut # (Auto) 6400 H PT INR D-Dimer Sodium Potassium Chloride Carbon Dioxide BUN Creatinine Estimated GFR BUN/Creatinine Ratio Glucose Uric Acid Calcium Magnesium Total Bilirubin AST ALT Alkaline Phosphatase Lactate Dehydrogenase Troponin I B-Natriuretic Peptide Total Protein Albumin Globulin Albumin/Globulin Ratio Lipase Urine Color Yellow Urine Appearance Clear Urine pH 7.5 Ur Specific [place] 1.015 Urine Protein Negative Urine Glucose (UA) Negative Urine Ketones Trace H Urine Occult Blood 3+ H Urine Nitrate Negative Urine Bilirubin Negative Urine Urobilinogen 0.2 Ur Leukocyte Esterase Negative Urine RBC 5-10/hpf H Urine WBC 0-1/hpf Ur Squamous Epith Cells 0-1 /hpf Urine Bacteria None seen Ur Culture Indicated? Cult not indicated Micro UA Comment Not Reportable U Random Total Protein Urine Creatinine Protein/Creatinin Ratio Nasal Screen MRSA (PCR) Negative for mrsa 01/18/18 01/18/18 04:38 04:38 WBC RBC Hgb Hct MCV MCH MCHC RDW Plt Count Neut % (Auto) Lymph % (Auto) [place] % (Auto) Eos % (Auto) Baso % (Auto) Neut # (Auto) PT 10.7 INR 1.0 D-Dimer Sodium 139 Potassium 2.9 L Chloride 104 Carbon Dioxide 25 BUN 3 L Creatinine 0.40 L Estimated GFR > 60.0 BUN/Creatinine Ratio 7.5 Glucose 109 H Uric Acid Calcium 6.8 L Magnesium 6.0 H* Total Bilirubin 0.6 AST 25 ALT 27 Alkaline Phosphatase 178 H Lactate Dehydrogenase Troponin I B-Natriuretic Peptide Total Protein 7.1 Albumin 3.6 Globulin 3.5 Albumin/Globulin Ratio 1.0 Lipase Urine Color Urine Appearance Urine pH Ur Specific [place] Urine Protein Urine Glucose (UA) Urine Ketones Urine Occult Blood Urine Nitrate Urine Bilirubin Urine Urobilinogen Ur Leukocyte Esterase Urine RBC Urine WBC Ur Squamous Epith Cells Urine Bacteria Ur Culture Indicated? Micro UA Comment U Random Total Protein Urine Creatinine Protein/Creatinin Ratio Nasal Screen MRSA (PCR) Assessment & Plan Plan: Assessment/Plan Narrative: Preeclampsia. Patient has had over 2 L of diuresis over the last 8 hr. Seems to have released her basal spasm. Blood pressure seems to be much improved. Minimal nicardipine. Mag level was okay. Discussed briefly with Dr. Newby who I would like to consult. He will come by later and see her. At this point I think we are out of the hubbard. She has a little bit hyperreflexic and she has slight elevation of her alk-phos but otherwise things seem to be okay. We discussed options at this point will switch to labetalol. Will discontinue magnesium. We will see what Dr. Newby feels and will follow from there. Re-evaluate and hoped and discharge tomorrow. Hypokalemia. IV and p.o. replacement. Recheck later this afternoon. Headache. I do not think this is a spinal headache probably related to preeclampsia although I am not entirely sure but much improved. Will follow. Mild elevation alk-phos. Patient has had some elevation I suspect this is related but not preeclampsia related we will recheck in a.m.. Anxiety/depression. Patient has been significantly depressed in the past. Very anxious at this time. We discussed that this is what we have to do and I think she is at least stable. Will have Ativan available if she needs it. We will continue her Prozac re-evaluate. Watch closely but I do not think this is an issue at this time. Status post . Incision looks good. No evidence of other issue. Will follow. History of abdominal pain. Seems to be more stable since delivery. Suspect will need to continue medicine for 6 weeks and then discontinue. DVT prophylaxis on Lovenox. GI prophylaxis patient with history of abdominal pain will be on medicine. Disposition. Hopefully we will be continuing to have significant output. Will follow closely. If stable tomorrow can be discharged. Quality VTE Deep Vein Thrombosis/Pulmonary Embolism Present on Admission: No
[2018-01-18] MEDS: LABETALOL 100 MG TABLET PO ×3 (08:43→21:07)
[2018-01-18] MEDS: ENOXAPARIN 40 MG/0.4 ML SYRINGE SUBCUT (08:43)
[2018-01-18] MEDS: FLUoxetine 20 MG CAPSULE 40 MG PO (08:44)
[2018-01-18] MEDS: IBUPROFEN 600 MG TABLET PO ×2 (08:44→16:08)
--- NOTE | 2018-01-18 12:12 | PM.CN ---
History of Present Illness Date Patient Seen: 01/18/18 Time Patient Seen: 12:12 Chief complaint: HEADACHE Reason for consult: Preeclampsia and magnesium sulfate therapy Narrative: The patient is a 22-year-old one now para one status post section for impending jeopardy. The patient's antepartum course was unremarkable and did not involve any hypertensive episodes. The patient's course was unremarkable and she was discharged within 24 hr of her surgery afebrile and normotensive. Patient did receive spinal anesthesia for her section. Patient on Wednesday night began having a headache which was worse with standing and better with lying down. In it was in the back of her neck and bilateral frontal area of her head. The patient was seen in the emergency room and evaluated. She initially was thought to have a spinal headache though obviously the symptomatology here is the reverse of what should be. She was then thought perhaps to have preeclampsia and was admitted on the basis of her elevated blood pressure of 160/110 and a headache. Patient was seen and evaluated in laboratory data showed a normal platelet count, normal liver function tests. An elevated BNP which is common in and . Her urine proteins x3 were negative. Serum magnesium level was elevated to six because of magnesium sulfate therapy. The patient was treated with labetalol 100 mg p.o. b.i.d. and her blood pressures are in the normal range of 118/60 on examination today. Intake and output shows the patient is diuresing with almost or over 2000 cc out of since midnight. [facility] Social History household members: spouse and children Smoking Status: Never smoker alcohol intake: never Meds Home Medications Medication Instructions Recorded Confirmed Type vit-iron fum-folic ac 1 cap PO QPM #0 09/18/16 01/17/18 History [Mynatal] omeprazole 20 mg PO BID #0 10/21/17 01/17/18 History fluoxetine [Prozac] 40 mg PO DAILY 01/07/18 01/17/18 History metoclopramide HCl [Reglan] 5 mg PO PRN PRN 01/07/18 01/17/18 History sucralfate [Carafate] 5 ml PO TID 01/07/18 01/17/18 History hydrocodone-acetaminophen 2 tab PO Q4HR PRN #40 tab 01/14/18 01/17/18 Rx ibuprofen 600 mg PO Q6HR PRN #60 tab 01/14/18 01/17/18 Rx Allergies Allergy/AdvReac Type Severity Reaction Status Date / Time No Known Drug Allergies Allergy Verified 12/04/17 21:33 Exam Vital Signs (past 8 hours): - 01/18/18 04:17 01/18/18 05:00 01/18/18 06:03 Temperature 98.2 F 98 F Pulse Rate 100 H 104 H 99 H Respiratory Rate 20 18 16 Blood Pressure 119/56 L 113/59 L 124/58 H Pulse Oximetry 98 97 98 01/18/18 07:39 01/18/18 08:04 01/18/18 09:34 Temperature 98.9 F Pulse Rate 108 H 110 H Respiratory Rate 17 108 H 20 Blood Pressure 131/72 H 122/91 H 121/66 H Pulse Oximetry 97 Oxygen Delivery Method Room Air HENIN Head: normal to inspection and other (Retinal exam shows no narrowing of the arteries no nicking and no hemorrhages or exudates) Ears: hearing grossly normal bilaterally Nose: external nose normal Face and sinus: normal facial exam Mouth: oral mucosae normal and tongue normal Teeth and gingiva: dentition normal Throat: posterior oropharynx normal and uvula midline Eyes General: appearance normal, both eyes and all related structures Eyelids: eyelids normal Conjunctivae: conjunctivae normal Sclera: sclerae normal Cornea: corneas normal Pupils: PERRL Neck Neck: normal visual inspection Chest Breast inspection: normal inspection of the breasts Breast Palpation: normal palpation of the breasts Resp Effort & Inspection: normal respiratory effort Auscultation: clear to auscultation bilaterally Cardio Palpation: normal PMI Rate: regular rate Rhythm: regular rhythm Heart Sounds: S1 normal and S2 normal GI Palpation: soft and no hepatosplenomegaly Percussion: normal to percussion Auscultation: normal bowel sounds Back/Spine/Pelvis Thoracic/Lumbar Spine: thoracic and lumbar spine normal to inspection Skin Lesions: no lesions Rashes: no rashes Trauma: no lacerations or abrasions Wounds: no wounds Neuro General: alert, tone normal, no focal motor deficits and normal sensation to monofilament DTR's: Rt Biceps: 2+, Lt Biceps: 2+, Rt Brachioradialis: 3+, Lt Brachioradialis: 3+, Rt Patellar: 3+, Lt Patellar: 3+, Rt Ankle: 3+ and Lt Ankle: 3+ Extrem General: normal to inspection and full ROM Psych Appearance: grossly normal Objective Labs Result Diagrams: 01/18/18 04:38 01/18/18 04:38 Labs: Laboratory Results - last 24 hr 01/17/18 01/17/18 01/17/18 18:15 18:15 20:03 WBC 7.2 RBC 4.49 Hgb 11.9 L Hct 34.9 L MCV 77.6 L MCH 26.4 MCHC 34.0 RDW 13.7 Plt Count 258 Neut % (Auto) 73.1 Lymph % (Auto) 17.1 L [place] % (Auto) 8.5 Eos % (Auto) 0.8 L Baso % (Auto) 0.5 Neut # (Auto) 5300 PT INR D-Dimer 2111 H Sodium 140 Potassium 3.3 L Chloride 102 Carbon Dioxide 27 BUN 7 Creatinine 0.60 Estimated GFR > 60.0 BUN/Creatinine Ratio 11.7 Glucose 91 Uric Acid Calcium 9.1 Magnesium Total Bilirubin AST ALT Alkaline Phosphatase Lactate Dehydrogenase Troponin I B-Natriuretic Peptide Total Protein Albumin Globulin Albumin/Globulin Ratio Lipase Urine Color Urine Appearance Urine pH Ur Specific [place] Urine Protein Urine Glucose (UA) Urine Ketones Urine Occult Blood Urine Nitrate Urine Bilirubin Urine Urobilinogen Ur Leukocyte Esterase Urine RBC Urine WBC Ur Squamous Epith Cells Urine Bacteria Ur Culture Indicated? Micro UA Comment U Random Total Protein Urine Creatinine Protein/Creatinin Ratio Nasal Screen MRSA (PCR) 01/17/18 01/17/18 01/17/18 20:07 20:07 20:07 WBC Cancelled RBC Cancelled Hgb Cancelled Hct Cancelled MCV Cancelled MCH Cancelled MCHC Cancelled RDW Cancelled Plt Count Cancelled Neut % (Auto) Cancelled Lymph % (Auto) Cancelled [place] % (Auto) Cancelled Eos % (Auto) Cancelled Baso % (Auto) Cancelled Neut # (Auto) Cancelled PT INR D-Dimer Sodium 141 Potassium 3.3 L Chloride 103 Carbon Dioxide 27 BUN 8 Creatinine 0.60 Estimated GFR > 60.0 BUN/Creatinine Ratio 13.3 Glucose 92 Uric Acid Calcium 9.1 Magnesium 1.7 Total Bilirubin 0.6 AST 28 ALT 32 Alkaline Phosphatase 159 H Lactate Dehydrogenase 604 Troponin I < 0.012 B-Natriuretic Peptide 130.0 H Total Protein 7.2 Albumin 3.6 Globulin 3.6 Albumin/Globulin Ratio 1.0 Lipase 69 Urine Color Urine Appearance Urine pH Ur Specific [place] Urine Protein Urine Glucose (UA) Urine Ketones Urine Occult Blood Urine Nitrate Urine Bilirubin Urine Urobilinogen Ur Leukocyte Esterase Urine RBC Urine WBC Ur Squamous Epith Cells Urine Bacteria Ur Culture Indicated? Micro UA Comment U Random Total Protein Urine Creatinine Protein/Creatinin Ratio Nasal Screen MRSA (PCR) 01/17/18 01/17/18 01/17/18 20:07 20:07 20:22 WBC RBC Hgb Hct MCV MCH MCHC RDW Plt Count Neut % (Auto) Lymph % (Auto) [place] % (Auto) Eos % (Auto) Baso % (Auto) Neut # (Auto) PT INR D-Dimer Sodium Potassium Chloride Carbon Dioxide BUN Creatinine Estimated GFR BUN/Creatinine Ratio Glucose Uric Acid 3.0 Calcium Magnesium 1.7 Total Bilirubin AST ALT Alkaline Phosphatase Lactate Dehydrogenase Troponin I B-Natriuretic Peptide Total Protein Albumin Globulin Albumin/Globulin Ratio Lipase Urine Color Urine Appearance Urine pH Ur Specific [place] Urine Protein Urine Glucose (UA) Urine Ketones Urine Occult Blood Urine Nitrate Urine Bilirubin Urine Urobilinogen Ur Leukocyte Esterase Urine RBC Urine WBC Ur Squamous Epith Cells Urine Bacteria Ur Culture Indicated? Micro UA Comment U Random Total Protein 16 H Urine Creatinine 8.0 Protein/Creatinin Ratio 2.00 Nasal Screen MRSA (PCR) 01/17/18 01/18/18 01/18/18 20:22 00:00 04:38 WBC 8.1 RBC 4.67 Hgb 12.2 Hct 36.3 MCV 77.6 L MCH 26.0 MCHC 33.5 RDW 13.2 Plt Count 293 Neut % (Auto) 78.7 H Lymph % (Auto) 12.4 L [place] % (Auto) 8.2 Eos % (Auto) 0.3 L Baso % (Auto) 0.4 Neut # (Auto) 6400 H PT INR D-Dimer Sodium Potassium Chloride Carbon Dioxide BUN Creatinine Estimated GFR BUN/Creatinine Ratio Glucose Uric Acid Calcium Magnesium Total Bilirubin AST ALT Alkaline Phosphatase Lactate Dehydrogenase Troponin I B-Natriuretic Peptide Total Protein Albumin Globulin Albumin/Globulin Ratio Lipase Urine Color Yellow Urine Appearance Clear Urine pH 7.5 Ur Specific [place] 1.015 Urine Protein Negative Urine Glucose (UA) Negative Urine Ketones Trace H Urine Occult Blood 3+ H Urine Nitrate Negative Urine Bilirubin Negative Urine Urobilinogen 0.2 Ur Leukocyte Esterase Negative Urine RBC 5-10/hpf H Urine WBC 0-1/hpf Ur Squamous Epith Cells 0-1 /hpf Urine Bacteria None seen Ur Culture Indicated? Cult not indicated Micro UA Comment Not Reportable U Random Total Protein Urine Creatinine Protein/Creatinin Ratio Nasal Screen MRSA (PCR) Negative for mrsa 01/18/18 01/18/18 04:38 04:38 WBC RBC Hgb Hct MCV MCH MCHC RDW Plt Count Neut % (Auto) Lymph % (Auto) [place] % (Auto) Eos % (Auto) Baso % (Auto) Neut # (Auto) PT 10.7 INR 1.0 D-Dimer Sodium 139 Potassium 2.9 L Chloride 104 Carbon Dioxide 25 BUN 3 L Creatinine 0.40 L Estimated GFR > 60.0 BUN/Creatinine Ratio 7.5 Glucose 109 H Uric Acid Calcium 6.8 L Magnesium 6.0 H* Total Bilirubin 0.6 AST 25 ALT 27 Alkaline Phosphatase 178 H Lactate Dehydrogenase Troponin I B-Natriuretic Peptide Total Protein 7.1 Albumin 3.6 Globulin 3.5 Albumin/Globulin Ratio 1.0 Lipase Urine Color Urine Appearance Urine pH Ur Specific [place] Urine Protein Urine Glucose (UA) Urine Ketones Urine Occult Blood Urine Nitrate Urine Bilirubin Urine Urobilinogen Ur Leukocyte Esterase Urine RBC Urine WBC Ur Squamous Epith Cells Urine Bacteria Ur Culture Indicated? Micro UA Comment U Random Total Protein Urine Creatinine Protein/Creatinin Ratio Nasal Screen MRSA (PCR) Assessment & Plan Plan: Assessment/Plan Narrative: Seems unlikely this patient has preeclampsia. Blood pressures elevation would appear to be response to headache pain. All laboratory values associated with preeclampsia are normal. Patient's urine protein is normal. Eye grounds exam which is a good indication of vascular spasm is normal. Diuresis indicates definite lack of a is a spasm at the level of the kidneys. Patient's reflexes are brisk without clonus off of magnesium sulfate. Reflexes are not her good indication of either the disease or the severity of the disease. Recommend continue labetalol 100 b.i.d. Discontinue magnesium sulfate Discontinue IV but Hep-Lock Transfer to floor
--- NOTE | 2018-01-18 14:31 | PC.NURSE ---
Day Shift Note Pt transferred to room 218 at 1430 via wheelchair. All belongings with pt. Report called to Mattie NEAL. Pt denies pain, headache resolved with ibuprofen this morning. Nicardipine gtt off at 0915 after administration of PO labtalol, BP staple in the 120s/80s.
--- NOTE | 2018-01-18 15:44 | PC.NURSE ---
Transfer: Recieved from ICU 22 y/o female s/p c-sect. Med drip had been d/c in ICU and pt was concerned about what her bp was, checked and bp 135/89 p 75. Does have a headache but it is only a sl headache. She is happy to have the baby staying with her tonight and grandma will be here to take care of the baby. Denies any problems at this time. Cont w/poc.
--- NOTE | 2018-01-18 15:57 | CM.DANOTE ---
DCP/Assessment: Reviewed chart. Patient is a 22yr old female admitted inpatient status with headache. PCP is Dr. Hardy. Primary payor is 1)Asm. Patient with mental health h/o depression and anxiety. Patient actively on prozac at baseline. DIRECTOR STERILE PROCESSING attempted to meet with patient 2x today. First time, patient transferring from room#105 to #218. Second, attempt patient with lab in room drawing blood and PATIENT TRANSPORT OFFICER doing assessment. Therefore, will plan for DIRECTOR STERILE PROCESSING to see patient prior to discharge. Per MD notes, patient with long h/o depression and anxiety. Patient has family support and MD reports in note from today mental health stable. P: DIRECTOR STERILE PROCESSING to follow up and access for any d/c planning needs prior to discharge. 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 Comment Patient delivered via 4days ago. Prior Living Arrangements Mobile home Household Members spouse children Independent with ADL's Yes Is patient alert and oriented? Yes: Per record patient alert and oriented x3 Caregiver for Another [place] and child Discharge Plan Home Transportation Arrangement Family to provide transport. Review Status In Process Next Review Type Continued Stay Review
[2018-01-18 16:19] LABS: Blood Urea Nitrogen 10 mg/dL (7-17); Calcium 8.7 mg/dL (8.4-10.2); Carbon Dioxide 20 mmol/L (22-32); Chloride 110 mmol/L (98-107); Estimated Glomerular Filt Rate > 60.0 mL/min (>60); Glucose 89 mg/dL (70-100); HEMOLYSIS < 15 (0-50); Potassium 4.1 mmol/L (3.4-5.1); Sodium 142 mmol/L (137-145)
[2018-01-18 17:14] LABS: Magnesium 3.1 mg/dL (1.6-2.3)
[2018-01-18] MEDS: LORazepam 2 MG/ML SYRINGE 0.5 MG IV (17:46)
--- NOTE | 2018-01-18 17:59 | P.PN_ITS ---
Subjective Date Patient Seen: 01/18/18 Time Patient Seen: 17:56 Interval history: Patient feeling quite a bit better. No headaches. Still having some mild elevation of blood pressure but otherwise no complaints. Potassium is normal. Feeling quite a bit better. Still feeling some anxiety. Did get some Ativan. Exam Vital Signs (past 8 hours): - 01/18/18 10:00 01/18/18 10:30 01/18/18 12:13 Temperature Pulse Rate 86 96 H 88 Respiratory Rate 21 18 17 Blood Pressure 106/57 L 114/61 126/86 H Pulse Oximetry 01/18/18 15:30 01/18/18 16:05 01/18/18 16:45 Temperature 98.5 F Pulse Rate 71 67 Respiratory Rate 16 16 Blood Pressure 146/95 H 148/105 H 146/96 H Pulse Oximetry 97 01/18/18 17:20 Temperature Pulse Rate 66 Respiratory Rate Blood Pressure 160/107 H Pulse Oximetry Oxygen Delivery Method Room Air Narrative Exam Narrative: Alert female in no acute distress Lungs clear. Heart regular rate and rhythm. Neurologic exam shows no clonus. Slight increase in reflexes but no change from earlier. Objective Labs Result Diagrams: 01/18/18 04:38 01/18/18 15:50 Labs: Laboratory Results - last 24 hr 01/17/18 01/17/18 01/17/18 18:15 18:15 20:03 WBC 7.2 RBC 4.49 Hgb 11.9 L Hct 34.9 L MCV 77.6 L MCH 26.4 MCHC 34.0 RDW 13.7 Plt Count 258 Neut % (Auto) 73.1 Lymph % (Auto) 17.1 L [place] % (Auto) 8.5 Eos % (Auto) 0.8 L Baso % (Auto) 0.5 Neut # (Auto) 5300 PT INR D-Dimer 2111 H Sodium 140 Potassium 3.3 L Chloride 102 Carbon Dioxide 27 BUN 7 Creatinine 0.60 Estimated GFR > 60.0 BUN/Creatinine Ratio 11.7 Glucose 91 Uric Acid Calcium 9.1 Magnesium Total Bilirubin AST ALT Alkaline Phosphatase Lactate Dehydrogenase Troponin I B-Natriuretic Peptide Total Protein Albumin Globulin Albumin/Globulin Ratio Lipase Urine Color Urine Appearance Urine pH Ur Specific [place] Urine Protein Urine Glucose (UA) Urine Ketones Urine Occult Blood Urine Nitrate Urine Bilirubin Urine Urobilinogen Ur Leukocyte Esterase Urine RBC Urine WBC Ur Squamous Epith Cells Urine Bacteria Ur Culture Indicated? Micro UA Comment U Random Total Protein Urine Creatinine Protein/Creatinin Ratio Nasal Screen MRSA (PCR) 01/17/18 01/17/18 01/17/18 20:07 20:07 20:07 WBC Cancelled RBC Cancelled Hgb Cancelled Hct Cancelled MCV Cancelled MCH Cancelled MCHC Cancelled RDW Cancelled Plt Count Cancelled Neut % (Auto) Cancelled Lymph % (Auto) Cancelled [place] % (Auto) Cancelled Eos % (Auto) Cancelled Baso % (Auto) Cancelled Neut # (Auto) Cancelled PT INR D-Dimer Sodium 141 Potassium 3.3 L Chloride 103 Carbon Dioxide 27 BUN 8 Creatinine 0.60 Estimated GFR > 60.0 BUN/Creatinine Ratio 13.3 Glucose 92 Uric Acid Calcium 9.1 Magnesium 1.7 Total Bilirubin 0.6 AST 28 ALT 32 Alkaline Phosphatase 159 H Lactate Dehydrogenase 604 Troponin I < 0.012 B-Natriuretic Peptide 130.0 H Total Protein 7.2 Albumin 3.6 Globulin 3.6 Albumin/Globulin Ratio 1.0 Lipase 69 Urine Color Urine Appearance Urine pH Ur Specific [place] Urine Protein Urine Glucose (UA) Urine Ketones Urine Occult Blood Urine Nitrate Urine Bilirubin Urine Urobilinogen Ur Leukocyte Esterase Urine RBC Urine WBC Ur Squamous Epith Cells Urine Bacteria Ur Culture Indicated? Micro UA Comment U Random Total Protein Urine Creatinine Protein/Creatinin Ratio Nasal Screen MRSA (PCR) 01/17/18 01/17/18 01/17/18 20:07 20:07 20:22 WBC RBC Hgb Hct MCV MCH MCHC RDW Plt Count Neut % (Auto) Lymph % (Auto) [place] % (Auto) Eos % (Auto) Baso % (Auto) Neut # (Auto) PT INR D-Dimer Sodium Potassium Chloride Carbon Dioxide BUN Creatinine Estimated GFR BUN/Creatinine Ratio Glucose Uric Acid 3.0 Calcium Magnesium 1.7 Total Bilirubin AST ALT Alkaline Phosphatase Lactate Dehydrogenase Troponin I B-Natriuretic Peptide Total Protein Albumin Globulin Albumin/Globulin Ratio Lipase Urine Color Urine Appearance Urine pH Ur Specific [place] Urine Protein Urine Glucose (UA) Urine Ketones Urine Occult Blood Urine Nitrate Urine Bilirubin Urine Urobilinogen Ur Leukocyte Esterase Urine RBC Urine WBC Ur Squamous Epith Cells Urine Bacteria Ur Culture Indicated? Micro UA Comment U Random Total Protein 16 H Urine Creatinine 8.0 Protein/Creatinin Ratio 2.00 Nasal Screen MRSA (PCR) 01/17/18 01/18/18 01/18/18 20:22 00:00 04:38 WBC 8.1 RBC 4.67 Hgb 12.2 Hct 36.3 MCV 77.6 L MCH 26.0 MCHC 33.5 RDW 13.2 Plt Count 293 Neut % (Auto) 78.7 H Lymph % (Auto) 12.4 L [place] % (Auto) 8.2 Eos % (Auto) 0.3 L Baso % (Auto) 0.4 Neut # (Auto) 6400 H PT INR D-Dimer Sodium Potassium Chloride Carbon Dioxide BUN Creatinine Estimated GFR BUN/Creatinine Ratio Glucose Uric Acid Calcium Magnesium Total Bilirubin AST ALT Alkaline Phosphatase Lactate Dehydrogenase Troponin I B-Natriuretic Peptide Total Protein Albumin Globulin Albumin/Globulin Ratio Lipase Urine Color Yellow Urine Appearance Clear Urine pH 7.5 Ur Specific [place] 1.015 Urine Protein Negative Urine Glucose (UA) Negative Urine Ketones Trace H Urine Occult Blood 3+ H Urine Nitrate Negative Urine Bilirubin Negative Urine Urobilinogen 0.2 Ur Leukocyte Esterase Negative Urine RBC 5-10/hpf H Urine WBC 0-1/hpf Ur Squamous Epith Cells 0-1 /hpf Urine Bacteria None seen Ur Culture Indicated? Cult not indicated Micro UA Comment Not Reportable U Random Total Protein Urine Creatinine Protein/Creatinin Ratio Nasal Screen MRSA (PCR) Negative for mrsa 01/18/18 01/18/18 01/18/18 04:38 04:38 15:50 WBC RBC Hgb Hct MCV MCH MCHC RDW Plt Count Neut % (Auto) Lymph % (Auto) [place] % (Auto) Eos % (Auto) Baso % (Auto) Neut # (Auto) PT 10.7 INR 1.0 D-Dimer Sodium 139 142 Potassium 2.9 L 4.1 D Chloride 104 110 H Carbon Dioxide 25 20 L BUN 3 L 10 Creatinine 0.40 L 0.50 L Estimated GFR > 60.0 > 60.0 BUN/Creatinine Ratio 7.5 20.0 Glucose 109 H 89 Uric Acid Calcium 6.8 L 8.7 Magnesium 6.0 H* Total Bilirubin 0.6 AST 25 ALT 27 Alkaline Phosphatase 178 H Lactate Dehydrogenase Troponin I B-Natriuretic Peptide Total Protein 7.1 Albumin 3.6 Globulin 3.5 Albumin/Globulin Ratio 1.0 Lipase Urine Color Urine Appearance Urine pH Ur Specific [place] Urine Protein Urine Glucose (UA) Urine Ketones Urine Occult Blood Urine Nitrate Urine Bilirubin Urine Urobilinogen Ur Leukocyte Esterase Urine RBC Urine WBC Ur Squamous Epith Cells Urine Bacteria Ur Culture Indicated? Micro UA Comment U Random Total Protein Urine Creatinine Protein/Creatinin Ratio Nasal Screen MRSA (PCR) 01/18/18 15:50 WBC RBC Hgb Hct MCV MCH MCHC RDW Plt Count Neut % (Auto) Lymph % (Auto) [place] % (Auto) Eos % (Auto) Baso % (Auto) Neut # (Auto) PT INR D-Dimer Sodium Potassium Chloride Carbon Dioxide BUN Creatinine Estimated GFR BUN/Creatinine Ratio Glucose Uric Acid Calcium Magnesium 3.1 H Total Bilirubin AST ALT Alkaline Phosphatase Lactate Dehydrogenase Troponin I B-Natriuretic Peptide Total Protein Albumin Globulin Albumin/Globulin Ratio Lipase Urine Color Urine Appearance Urine pH Ur Specific [place] Urine Protein Urine Glucose (UA) Urine Ketones Urine Occult Blood Urine Nitrate Urine Bilirubin Urine Urobilinogen Ur Leukocyte Esterase Urine RBC Urine WBC Ur Squamous Epith Cells Urine Bacteria Ur Culture Indicated? Micro UA Comment U Random Total Protein Urine Creatinine Protein/Creatinin Ratio Nasal Screen MRSA (PCR) Assessment & Plan Plan: Assessment/Plan Narrative: Appreciate Dr. Newby his input. I think we are much improved. Blood pressure is still mildly elevated but I think this has more to do with her anxiety than her preeclampsia. Headache is gone. Feeling much better. Potassium is normal. No further potassium supplements will repeat in a.m.. Will repeat labs just to be sure and make sure stable. If everything is stable will send home tomorrow on Lopressor. Patient understands questions answered. Will need to watch her anxiety closely. Probably will need to be more aggressive in therapy. May need psychiatric evaluation will see how things go. Certainly stable at this time Quality VTE Deep Vein Thrombosis/Pulmonary Embolism Present on Admission: No
[2018-01-18] MEDS: PRENATAL VIT,CALC/IRON/FOLIC 1 TABLET 1 TAB PO (21:06)
[2018-01-18] MEDS: SODIUM CHLORIDE 0.9% FLUSH 10 ML IV (21:09)
[2018-01-19] VITALS (8 sets, daily range): BP systolic 138–149; BP diastolic 84–95; PULSE 65–80; RESP 16; TEMP 36.6–36.9; O2SAT 96–98
[2018-01-19] MEDS: IBUPROFEN 600 MG TABLET PO ×2 (01:13→08:23)
[2018-01-19 06:16] LABS: Add Manual Diff / Slide Review NO; Basophils Percent Auto 0.5 % (0-2); Eosinophils Percent Auto 1.2 % (2-4); Hematocrit 34.6 % (36-46); Hemoglobin 11.7 g/dL (12.0-16.0); Lymphocytes Percent Auto 21.3 % (25-40); Mean Corpuscular HGB Conc 33.7 % (30-36); Mean Corpuscular Hemoglobin 26.3 PG (26-34); Mean Corpuscular Volume 77.8 fL (80-100); Monocytes Percent Auto 8.8 % (3-14); Neutrophils Absolute Auto 4800 /uL (3000-5900); Neutrophils Percent Auto 68.2 % (50-75); Platelet Count 287 X10^3/uL (150-400); Red Blood Cell Count 4.44 X10^6/uL (4.0-5.2); Red Cell Distribution Width 13.6 % (11.6-14.8); White Blood Cell Count 7.1 X10^3/uL (4.5-11.0)
[2018-01-19 06:23] LABS: Alanine Aminotransferase 23 IU/L (9-52); Albumin 3.4 g/dL (3.5-5.0); Alkaline Phosphatase 144 U/L (38-126); Aspartate Aminotransferase 21 IU/L (14-36); Bilirubin Total 0.8 mg/dL (0.2-1.3); Blood Urea Nitrogen 11 mg/dL (7-17); Calcium 8.9 mg/dL (8.4-10.2); Carbon Dioxide 22 mmol/L (22-32); Chloride 108 mmol/L (98-107); Estimated Glomerular Filt Rate > 60.0 mL/min (>60); Globulin 3.4 g/dL (1.7-4.1); Glucose 90 mg/dL (70-100); HEMOLYSIS < 15 (0-50); Potassium 3.8 mmol/L (3.4-5.1); Sodium 141 mmol/L (137-145); Total Protein 6.8 g/dL (6.3-8.2)
[2018-01-19] MEDS: ENOXAPARIN 40 MG/0.4 ML SYRINGE SUBCUT (08:22)
[2018-01-19] MEDS: LABETALOL 100 MG TABLET PO (08:22)
[2018-01-19] MEDS: FLUoxetine 20 MG CAPSULE 40 MG PO (08:22)
[2018-01-19] MEDS: SODIUM CHLORIDE 0.9% FLUSH 10 ML IV (08:30)
--- NOTE | 2018-01-19 09:06 | CM.DANOTE ---
Addendum entered by FELIPE Carrington 01/19/18 12:09: ADD: Per MD, pt medically stable to d/c home with no identified barriers to discharge. Plan: Patient discharging home today via mother's POV. No SW needs at this time. FELIPE Carrington Original Note: Discharge Planning/Care Management Per MD, pt may be stable for d/c home today and will round on the pt this morning. Per RN, pt still has some higher bp but independent in the room and has supportive mother and baby bedside and pt ambulating the halls. Pt states she is anxious to get home this morning. SW met bedside with pt and mother and baby boy and explained role and pt confirmed that she lives in [place] with her and 3 year old and her mother lives right next door and provides supportive assist when needed. Pt states that she is comfortable with d/c home with and is aware of pediatric services available. Pt confirms that she has anxiety and a hx of depression but states that when she is in the community and home her mental health is managed well with medication. Pt currently is not enrolled in mental health services and declines resources since she feels she is well managed without any needs or concerns. Pt states that being in the hospital makes her feel trapped and that my anxiety is much more pronounced in the hospital than it is at baseline. Pt's mom does not express any further concerns at this time and can provide transport home when discharged. Plan: SW to follow for likely pt d/c home via mother's POV when medically stable. No SW needs at this time, please refer if further indicated. 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 Comment Patient delivered via 4days ago. Prior Living Arrangements Mobile home Household Members spouse children Independent with ADL's Yes Is patient alert and oriented? Yes: Per record patient alert and oriented x3 Caregiver for Another and child Discharge Plan Home Transportation Arrangement Family to provide transport. 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 Is this patient on Medicare? No Is the admit diagnosis the same? No Comment Patient delivered via 4days ago. Prior Living Arrangements Mobile home Household Members spouse children Type of transporation used prior to Drives own vehicle admit Independent with ADL's Yes Is patient alert and oriented? Yes: Per record patient alert and oriented x3 Caregiver for Another Yes: [place] and child Referrals Initiated None needed Discharge Plan Home Transportation Arrangement Family to provide transport. Review Status In Process Next Review Type Continued Stay Review
--- NOTE | 2018-01-19 10:23 | PM.DS.1 ---
History of Present Illness Date Patient Seen: 01/19/18 Time Patient Seen: 10:23 Chief complaint: HEADACHE Narrative: See H&P Discharge Providers Date of admission: 01/17/18 23:41 Primary care physician: Keagan Hardy MD Consults: 01/17/18 23:05 Consult to Physician Routine Comment: Consulting Provider: Keagan Hardy Reason for consultation: preeclampsia Has provider been notified: Yes 01/18/18 08:06 Consult to Physician Routine Comment: Consulting Provider: Keagan Newby Reason for consultation: preeclampsia Has provider been notified: Yes Discharge provider: Heri Lau MD Summary Discharge Diagnosis: Hypertension Anxiety Headache Recent section Hypokalemia Hypermagnesemia, iatrogenic Hospital Course: Patient admitted through the emergency room after finding of persistent severe headache, found with fair hypertension with concern of preeclampsia given recent delivery. She however had none of the usual lab findings or significant physical findings consistent with that diagnosis. It was thought that she might have a spinal headache as she had had a spinal anesthetic, so that was evaluated. She was evaluated by OBGYN and treated with antihypertensives. Also found during this stay with a significant drop in potassium so that was replaced. Because of the potential of preeclampsia she was also treated with magnesium sulfate and that caused a significant rise in her magnesium level that has largely resolved at this time. Her headache resolved within a day or so blood pressure began to come down some still remains a little high. She was quite anxious throughout the hospitalization as his her habit I believe. But felt comfortable going home this morning. Also of note very little post operative pain. Status at Discharge Cognitive/behavioral status at discharge: Normal slightly anxious Functional status at discharge: independent ambulation Overall status at discharge: patient is back to baseline Time Spent with Patient Greater than 30 minutes Exam Vital Signs (past 8 hours): - 01/19/18 06:14 01/19/18 07:35 01/19/18 08:19 Temperature 98.4 F 97.9 F Pulse Rate 80 72 Respiratory Rate 16 16 Blood Pressure 142/88 H 146/92 H Pulse Oximetry 96 98 98 01/19/18 09:08 Temperature Pulse Rate 77 Respiratory Rate Blood Pressure 142/91 H Pulse Oximetry Oxygen Delivery Method Room Air Oxygen Flow Rate 0 Narrative Exam Narrative: Healthy appearing sitting up in bed no acute distress in good spirits, with her mother in the room with her. HEENT unremarkable neck is benign chest is clear heart has a regular rate and rhythm without murmur abdomen is soft nontender there is a palpable fundus in the lower pelvis no hepatosplenomegaly. Extremities without edema reflexes slightly hyper. Otherwise normal exam. Objective Labs Result Diagrams: 01/19/18 05:45 01/19/18 05:45 Labs: Laboratory Results - last 24 hr 01/18/18 01/18/18 01/19/18 15:50 15:50 05:45 WBC 7.1 RBC 4.44 Hgb 11.7 L Hct 34.6 L MCV 77.8 L MCH 26.3 MCHC 33.7 RDW 13.6 Plt Count 287 Neut % (Auto) 68.2 Lymph % (Auto) 21.3 L [place] % (Auto) 8.8 Eos % (Auto) 1.2 L Baso % (Auto) 0.5 Neut # (Auto) 4800 Sodium 142 Potassium 4.1 D Chloride 110 H Carbon Dioxide 20 L BUN 10 Creatinine 0.50 L Estimated GFR > 60.0 BUN/Creatinine Ratio 20.0 Glucose 89 Calcium 8.7 Magnesium 3.1 H Total Bilirubin AST ALT Alkaline Phosphatase Total Protein Albumin Globulin Albumin/Globulin Ratio 01/19/18 05:45 WBC RBC Hgb Hct MCV MCH MCHC RDW Plt Count Neut % (Auto) Lymph % (Auto) [place] % (Auto) Eos % (Auto) Baso % (Auto) Neut # (Auto) Sodium 141 Potassium 3.8 Chloride 108 H Carbon Dioxide 22 BUN 11 Creatinine 0.50 L Estimated GFR > 60.0 BUN/Creatinine Ratio 22.0 Glucose 90 Calcium 8.9 Magnesium Total Bilirubin 0.8 AST 21 ALT 23 Alkaline Phosphatase 144 H Total Protein 6.8 Albumin 3.4 L Globulin 3.4 Albumin/Globulin Ratio 1.0 Discharge Plan Discharge Plan Patient Disposition: Home, Self-Care Provider Discharge Instructions Diet: Diet as Tolerated Activity: As tolerated Wound Care Report to your healthcare provider any signs of infection, such as:: chills, fever, night sweats, increased pain and unusual drainage Discharge Data Primary Care Provider: Keagan Hardy Attending Provider: Keagan Hardy Admit Date/Time: 01/17/18 23:41 Quality VTE Deep Vein Thrombosis/Pulmonary Embolism Present on Admission: No
== END 2018-01-19 11:00 | disposition home or self-care (01) | DRG 776 ==
LOC: ED 23:07 → ICU 23:42 → AC 01-18 16:10
PROVIDERS: Emergency Medicine; Admitting Provider Family Medicine; Emergency Provider Emergency Medicine; Family Provider Family Medicine; PCP Family Medicine; Visit Provider Family Medicine
DX: O16.5 Unspecified maternal hypertension, complicating the puerperium (principal); E87.6 Hypokalemia; R51 Headache; F41.9 Anxiety disorder, unspecified; F32.9 Major depressive disorder, single episode, unspecified; E83.41 Hypermagnesemia
CPT/HCPCS: 36415; 36591; 70450; 70470; 71045; 80048; 80053; 81001; 82570; 83615; 83690; 83735; 83880; 84156; 84484; 84550; 85025; 85379; 85610; 87797; 93005; 99285; 99291; 99292; J0780; J1200; J1650; J1885; J2060; J2405; J3475; Q9967

== ENCOUNTER 2018-07-30 18:39 | Emergency (ER) | payer OTHER, SELFPAY ==
[2018-01-18 13:35] VITALS: BMI 19.6
--- NOTE | 2018-07-30 18:49 | ED_ITS ---
HPI - Extremity Problem <DEBORA Moses - Last Filed: 07/30/18 21:54> General Chief complaint: Skin/Abscess/Foreign Body Stated complaint: right lwr leg, thinks she has an infection Time Seen by Provider: 07/30/18 18:49 Source: patient Mode of arrival: ambulatory Limitations: no limitations History of Present Illness HPI Narrative: Healthy 22-year-old female that is a nonsmoker here for complaint of redness and tenderness to her left renee area over the past few days. She denies any drainage from the area. She states she has had abscesses like this in the past. She denies any fevers. No trauma to the area. Increased pain with palpation to the area. She denies any other concerns or complaints at this timeframe. Related Data Home Medications Medication Instructions Recorded Confirmed omeprazole 20 mg PO BID #0 10/21/17 01/17/18 fluoxetine [Prozac] 40 mg PO DAILY 01/07/18 01/17/18 Previous Rx's Medication Instructions Recorded hydrocodone-acetaminophen 2 tab PO Q4HR PRN #40 tab 01/14/18 ibuprofen 600 mg PO Q6HR PRN #60 tab 01/14/18 labetalol 200 mg PO BID #60 tab 01/19/18 clindamycin HCl 300 mg PO QID #28 cap 07/30/18 Allergies Allergy/AdvReac Type Severity Reaction Status Date / Time No Known Drug Allergies Allergy Verified 07/30/18 18:56 Review of Systems <DEBORA Moses - Last Filed: 07/30/18 21:54> Constitutional Denies chills, Denies fever(s), Denies lethargy and Denies weakness Eyes Denies change in vision, Denies eye discharge, Denies irritation and Denies loss of vision ENT Ears, Nose, Mouth, and Throat: Denies change in voice, Denies neck pain and Denies sore throat Cardiovascular Denies chest pain, Denies irregular heart rhythm, Denies lightheadedness, Denies palpitations, Denies dyspnea, Denies dyspnea on exertion and Denies orthopnea Respiratory Denies cough, Denies dyspnea, Denies dyspnea on exertion and Denies wheezing Gastrointestinal Gastrointestinal: Denies abdominal pain, Denies change in bowel habits, Denies diarrhea, Denies nausea and Denies vomiting Genitourinary Denies hematuria, Denies flank pain, Denies urinary incontinence and Denies urinary urgency Musculoskeletal Denies neck pain Comments: Redness and pain into left renee Integumentary/Breasts Denies pruritus, Denies erythema, Denies rash and Denies wounds Neurologic Denies confusion, Denies loss of vision and Denies weakness Psychiatric Denies anxiety, Denies confusion, Denies depression, Denies homicidal ideation and Denies suicidal ideation Endocrine Denies palpitations Hematologic/Lymphatic Denies easy bruising Allergic/Immunologic Denies wheezing Exam <DEBORA Moses - Last Filed: 07/30/18 21:54> Initial Vital Signs Initial Vital Signs: Vital Signs Temperature 97.4 F L 07/30/18 18:56 Pulse Rate 100 H 07/30/18 18:56 Respiratory Rate 14 07/30/18 18:56 Blood Pressure 132/89 07/30/18 18:56 Pulse Oximetry 100 07/30/18 18:56 Const General: cooperative and well developed Nutritional Appearance: well nourished Orientation: alert, awake, oriented x3 and not confused HENHI Mouth: oral mucosae normal and moist mucous membranes Eyes Conjunctivae: conjunctivae normal Sclera: sclerae normal Pupils: PERRL EOM: EOM intact bilaterally Resp Effort & Inspection: normal respiratory effort, able to speak in complete sentences, no respiratory distress and no use of accessory muscles Auscultation: clear to auscultation bilaterally, no rales, no rhonchi and no wheezes Cardio Rate: regular rate Rhythm: regular rhythm Heart Sounds: no click, no gallops, no murmurs and no rubs Skin General: no rashes or lesions noted, No jaundice and No petechiae Neuro General: alert, oriented x3, gait normal and no focal motor deficits Speech: speech normal Extrem Other: Up to 6 cm area of erythema to the anterior left renee area. No fluctuance or induration. Distal sensation is intact. Distal range of motion is good distal pulses are intact. <Shemar Cross DO - Last Filed: 07/31/18 03:28> Initial Vital Signs Initial Vital Signs: Vital Signs Temperature 97.4 F L 07/30/18 18:56 Pulse Rate 100 H 07/30/18 18:56 Respiratory Rate 14 07/30/18 18:56 Blood Pressure 132/89 07/30/18 18:56 Pulse Oximetry 100 07/30/18 18:56 Course <DEBORA Moses - Last Filed: 07/30/18 21:54> Orders Ordered: Discontinued Medications Clindamycin HCl (Cleocin) 300 mg PO NOW ONE Stop: 07/30/18 19:48 Last Admin: 07/30/18 19:52 Dose: 300 mg Ibuprofen (Advil) 400 mg PO NOW ONE Stop: 07/30/18 19:40 Last Admin: 07/30/18 19:48 Dose: 400 mg Vital Signs - 8 hr 07/30/18 20:22 Pulse Rate 91 H Respiratory Rate 14 Blood Pressure 113/77 Pulse Oximetry 100 <Shemar Cross DO - Last Filed: 07/31/18 03:28> Orders Ordered: Discontinued Medications Clindamycin HCl (Cleocin) 300 mg PO NOW ONE Stop: 07/30/18 19:48 Last Admin: 07/30/18 19:52 Dose: 300 mg Ibuprofen (Advil) 400 mg PO NOW ONE Stop: 07/30/18 19:40 Last Admin: 07/30/18 19:48 Dose: 400 mg Vital Signs - 8 hr 07/30/18 20:22 Pulse Rate 91 H Respiratory Rate 14 Blood Pressure 113/77 Pulse Oximetry 100 MDM - Extremity (Nontraumatic) <DEBORA Moses - Last Filed: 07/30/18 21:54> MDM Narrative Medical decision making narrative: Sinus symptoms presents as a starting abscess /cellulitis to the left renee area. Needle I and D was completed and only a small amount of purulent drainage was removed. Wound dressed with bacitracin dressing. She is placed on clindamycin. [id number] Tylenol or Motrin as needed for any discomfort. Follow up with primary care provider. Return emergency room for worsening symptoms. Discharge Plan Departure Patient Disposition: Home Clinical Impression: Abscess of left leg Discharge Date/Time: 07/30/18 20:24 Interventions: ED Discharge Assessment Last Done: 07/30/18 20:22 Instructions: DI for Incision and Drainage of a Skin Abscess Activity Restrictions/Additional Instructions: Signs and symptoms presents as starting abscess cellulitis to the your left renee area. You are placed on an antibiotic called clindamycin use as directed. Use [id number] Tylenol or Motrin as needed for any discomfort. Follow up with her primary care provider in the next few days for re-evaluation. For any worsening symptoms return emergency room Prescriptions: New clindamycin HCl 300 mg capsule 300 mg PO QID Qty: 28 RF: 0 No Action omeprazole 40 MG capsule,delayed release(DR/EC) 20 mg PO BID Qty: 0 RF: 0 hydrocodone-acetaminophen 5-325 mg Tablet 2 tab PO Q4HR PRN (Reason: Pain, Severe (7-10)) Qty: 40 RF: 1 ibuprofen 600 mg Tablet 600 mg PO Q6HR PRN (Reason: As Needed For Fever/Mild Pain) Qty: 60 RF: 1 fluoxetine [Prozac] 40 mg capsule 40 mg PO DAILY RF: 0 labetalol 200 mg tablet 200 mg PO BID Qty: 60 RF: 0 Referrals: Keagan Hardy MD [Primary Care Provider] - <Shemar Cross DO - Last Filed: 07/31/18 03:28> Cosign ED Attending [place] Attestation: I was immediately available in the department for consultation. Documentation has been reviewed. I agree with assessment and plan.
[2018-07-30 18:56] VITALS: BP 132/89; PULSE 100; RESP 14; TEMP 36.3; O2SAT 100; BMI 21.9
--- NOTE | 2018-07-30 19:09 | PC.NURSE ---
Pt reports pain in her calf related to the abcess on the left front of her left renee. Pt reports it being an ingrown hair pimple that she attempted to drain this morning. Pt also stats she had similar abcesses in her armpits over carlos last few months. Positive distal CMS.
[2018-07-30] MEDS: IBUPROFEN 400 MG TABLET PO (19:48)
[2018-07-30] MEDS: CLINDAMYCIN 150 MG CAPSULE 300 MG PO (19:52)
[2018-07-30 20:22] VITALS: BP 113/77; PULSE 91; RESP 14; O2SAT 100
== END 2018-07-30 20:24 | disposition home or self-care (01) ==
PROVIDERS: Emergency Provider Nurse Practitioner Family; Family Provider Family Medicine; PCP Family Medicine
DX: L02.416 Cutaneous abscess of left lower limb (principal)
CPT/HCPCS: 99282; 99283

== ENCOUNTER → 2020-01-18 09:33 | Outpatient (CLI) | payer OTHER, SELFPAY ==
[2018-01-18 13:35] VITALS: BMI 19.6
--- NOTE | 2020-01-18 | DI.US.S_ITS ---
PROCEDURE: US OB <= 14 WEEKS FETUS INDICATIONS: INITIAL SIZE AND DATES OUTSIDE/PRIOR DATING DATA: Last menstrual period (LMP): 12/01/19. LMP-based estimated date of delivery (STEFF): 09/06/20. First dating scan (date and location): 01/18/20. Estimated date of delivery (STEFF) from first dating scan: 09/08/20. TECHNIQUE: Real-time scanning was performed of the fetus and maternal pelvic organs, with image documentation. Endovaginal scanning was also performed to better visualize the fetus and maternal ovaries. COMPARISON: None. FINDINGS: Embryo: Single living intrauterine gestation is identified with an estimated sonographic gestational age of approximately 6 weeks and 5 days based off crown-rump length measurement of 0.75 cm. Estimated gestational age based off the mean gestational sac diameter of 1.4 cm is approximately 6 weeks and 2 days. Composite gestational age from today's evaluation is approximately 6 weeks and 4 days. heart rate measured 141 beats per minute. No perigestational hemorrhage. Measurement variability in dating: +/- 4 weeks by LMP, +/- 7 days by mean sac diameter (use before 6 weeks gestation if crown-rump length not able to be measured), +/- 5 days by crown-rump length (up to 8 weeks 6 days gestation), +/- 7 days by crown-rump length (up to 13 weeks 6 days gestation). Maternal organs: There is a corpus luteal cyst measuring 2.0 cm on the right. Prominent cyst measuring 2.2 cm is noted within the left ovary. Limited images through the kidneys demonstrate no hydronephrosis. IMPRESSION: Single living intrauterine gestation with an estimated sonographic gestational age of approximately 6 weeks and 4 days. Clinical and imaging followup recommended. Dictated by: Francois Webb M.D. on 01/18/2020 at 11:07 Approved by: Francois Webb M.D. on 01/18/2020 at 11:10
== END ==
PROVIDERS: Family Provider Family Medicine; PCP Family Medicine; Referring Provider Family Medicine; Visit Provider Family Medicine
DX: Z34.91 Encounter for supervision of normal pregnancy, unspecified, first trimester (principal); Z3A.01 Less than 8 weeks gestation of pregnancy
CPT/HCPCS: 76801

== ENCOUNTER → 2020-04-22 12:02 | Outpatient (CLI) | payer OTHER, MEDICAID, SELFPAY ==
[2018-01-18 13:35] VITALS: BMI 19.6
--- NOTE | 2020-04-22 | DI.US.S_ITS ---
PROCEDURE: US OB >= 14 WEEKS FETUS INDICATIONS: 20 WEEK ANATOMICAL SURVEY OUTSIDE/PRIOR DATING DATA: Last menstrual period (LMP): 12/01/2019. LMP-based estimated date of delivery (STEFF): 09/06/2020. First dating scan (date and location): 01/18/2020. Estimated date of delivery (STEFF) from first dating scan: 02/05/2021. TECHNIQUE: Real-time scanning was performed of the fetus, with image documentation and biometric measurements. Endovaginal scanning: Not performed COMPARISON: None. FINDINGS: General: A single living intrauterine gestation is present. Presentation: Breech Placenta: Placental position is posterior right fundal, without previa. Amniotic fluid index: 10 cm, normal range is 5-24 cm. heart rate: 137 beats per minute. Maternal cervical canal: 4 cm long. Normal lower limit is 2.5 cm. biometrics: Biparietal diameter: 4.6 cm, 19 weeks, 6 days Head circumference: 17.6 cm, 20 weeks, 1 day Abdominal circumference: 14.2 cm, 19 weeks, 4 days Femur length: 3.1 cm, 19 weeks, 5 days Estimated gestational age from initial scan: 20 weeks, 1 day Composite gestational age from present scan: 19 weeks, 6 days Estimated weight and percentile: 307 grams, 22 percent Measurement variability for biometric dating: +/- 7 days from 14 weeks to 15 weeks 6 days gestation, +/- 10 days from 16 weeks to 21 weeks 6 days gestation, +/- 2 weeks from 22 weeks to 27 weeks 6 days gestation, +/- 3 weeks for 28 weeks gestation or later. weight reference: 4500 g or EFW >90/95% is considered macrosomia or large for gestational age. EFW <10% is small for gestational age. EFW 5% or less is considered intra-uterine growth restriction. Anatomic survey: Neuro: Ventricles are non-dilated at less than 10 mm. Cisterna magna is normal at 3-11 mm. Cerebellum is normal in size and morphology. Nuchal skin fold: Normal at less than 6 mm between 14-21 weeks gestational age. Face: Nose and lips, facial profile are normal. Spine: No evidence for spina bifida. Heart: 4-chambered heart is present, with normal ventricular outflow tracts. Diaphragm: Diaphragm is intact. Stomach: Left-sided stomach is present. Kidneys: No hydronephrosis. Normal is less than 5 mm in 2nd trimester, less than 7 mm in 3rd trimester. Cord: 3-vessel cord has orthotopic insertion. Bladder: Normal in size. Extremities: All 4 extremities identified. IMPRESSION: 1. Single live intrauterine with fetus in breech presentation. heart rate is 137 beats per minute. Normal amount of amniotic fluid. Normal cervical length. 2. Normal growth. Normal anatomic survey. Dictated by: John Heck M.D. on 04/22/2020 at 15:25 Approved by: John Heck M.D. on 04/22/2020 at 15:28
== END ==
PROVIDERS: Family Provider Family Medicine; PCP Family Medicine; Referring Provider Family Medicine; Visit Provider Family Medicine
DX: Z36.89 Encounter for other specified antenatal screening (principal); Z3A.19 19 weeks gestation of pregnancy
CPT/HCPCS: 76811

== ENCOUNTER 2020-05-26 18:43 | Outpatient (CLI) | payer OTHER, MEDICAID, SELFPAY ==
[2018-01-18 13:35] VITALS: BMI 19.6
== END 2020-05-26 20:10 | disposition home or self-care (01) ==
LOC: OB 06-11 13:34
PROVIDERS: Family Provider Family Medicine; PCP Family Medicine; Referring Provider Family Medicine; Visit Provider Family Medicine
DX: O26.892 Other specified pregnancy related conditions, second trimester (principal); N89.8 Other specified noninflammatory disorders of vagina; Z3A.23 23 weeks gestation of pregnancy
CPT/HCPCS: 59025; G0378; G0379

== ENCOUNTER → 2020-07-15 12:23 | Outpatient (CLI) | payer OTHER, MEDICAID, SELFPAY ==
[2018-01-18 13:35] VITALS: BMI 19.6
[2020-07-15 12:48] LABS: COVID19 -Nasal RAPID Negative (Negative)
== END ==
PROVIDERS: Family Provider Family Medicine; PCP Family Medicine; Visit Provider Physician Assistant
DX: Z20.828 Contact with and (suspected) exposure to other viral communicable diseases (principal); J06.9 Acute upper respiratory infection, unspecified
CPT/HCPCS: 87070; 87147; 87635

== ENCOUNTER 2020-07-27 18:50 | Observation (INO) | payer OTHER, MEDICAID, SELFPAY ==
[2018-01-18 13:35] VITALS: BMI 19.6
[2020-07-27] MEDS: NIFEdipine 10 MG CAPSULE PO ×4 (20:08→21:10)
[2020-07-27 20:21] LABS: Bacteria Urine None Seen
[2020-07-27 20:23] LABS: Appearance Urine UA SL CLOUDY; Bilirubin Urine UA NEGATIVE (NEGATIVE); Color Urine UA YELLOW; Glucose Urine UA NEGATIVE (Negative); Ketones Urine UA NEGATIVE (NEGATIVE); Leukocyte Esterase Urine UA 1+ (NEGATIVE); Nitrite Urine UA NEGATIVE (Negative); Occult Blood Urine UA NEGATIVE (Negative); Protein Urine UA NEGATIVE (Negative); Specific Gravity Urine UA 1.015 (1.000-1.035); Urobilinogen Urine UA 0.2 E.U./dL (0.2)
[2020-07-27 20:36] LABS: Amorphous Sediment Urine 1+; Culture Indicated Urine Specimen Cultured; RBC Urine 0-1/HPF (0-5/HPF); Squamous Epithelial Cell Urine 0-1 /HPF (0-5/HPF); WBC Urine 0-1/HPF (0-5/HPF)
[2020-07-27 21:00] LABS: Add Manual Diff / Slide Review NO; Basophils Absolute Auto 100 /uL (0-100); Basophils Percent Auto 0.8 % (0-2); Eosinophils Absolute Auto 100 /uL (0-450); Hematocrit 31.7 % (36-46); Hemoglobin 10.5 g/dL (12.0-16.0); Lymphocytes Absolute Auto 2400 /uL (1100-4500); Lymphocytes Percent Auto 25.6 % (25-40); Mean Corpuscular HGB Conc 33.2 % (30-36); Mean Corpuscular Hemoglobin 23.7 PG (26-34); Mean Corpuscular Volume 71.6 fL (80-100); Monocytes Absolute Auto 700 /uL (0-900); Monocytes Percent Auto 7.5 % (3-14); Neutrophils Absolute Auto 6100 /uL (1500-7000); Neutrophils Percent Auto 65.1 % (50-75); Platelet Count 261 X10^3/uL (150-400); Red Blood Cell Count 4.43 X10^6/uL (4.0-5.2); Red Cell Distribution Width 12.5 % (11.6-14.8); White Blood Cell Count 9.4 X10^3/uL (4.5-11.0)
[2020-07-27] MEDS: LACTATED RINGERS 1,000 ML 1000 ML IV (21:00)
[2020-07-27] MEDS: cephALEXin 250 MG CAPSULE 500 MG PO (21:47)
== END 2020-07-27 22:01 | disposition home or self-care (01) ==
LOC: LABOR 18:52
PROVIDERS: Admitting Provider Family Medicine; Family Provider Family Medicine; PCP Family Medicine; Referring Provider Family Medicine; Visit Provider Family Medicine
DX: O36.8130 Decreased fetal movements, third trimester, not applicable or unspecified (principal); Z3A.34 34 weeks gestation of pregnancy
CPT/HCPCS: 36415; 59025; 59050; 81001; 84112; 85025; 87077; 87086; 96360; G0378; G0379

== ENCOUNTER 2020-08-06 09:45 | Observation (INO) | payer OTHER, MEDICAID, SELFPAY ==
[2018-01-18 13:35] VITALS: BMI 19.6
== END 2020-08-06 10:50 | disposition home or self-care (01) ==
PROVIDERS: Admitting Provider Family Medicine; Family Provider Family Medicine; PCP Family Medicine; Referring Provider Family Medicine; Visit Provider Family Medicine
DX: O26.893 Other specified pregnancy related conditions, third trimester (principal); N89.8 Other specified noninflammatory disorders of vagina; O26.23 Pregnancy care for patient with recurrent pregnancy loss, third trimester; Z3A.35 35 weeks gestation of pregnancy
CPT/HCPCS: 59025; 84112; G0378; G0379

== ENCOUNTER 2020-08-06 15:10 | Inpatient (IN) | payer OTHER, MEDICAID, SELFPAY ==
[2018-01-18 13:35] VITALS: BMI 19.6
[2020-08-06] MEDS: LACTATED RINGERS 1,000 ML 100 ML IV ×3 (16:30→18:42)
[2020-08-06 16:38] VITALS: BP 120/71
[2020-08-06 16:38] LABS: Add Manual Diff / Slide Review NO; Basophils Absolute Auto 0 /uL (0-100); Basophils Percent Auto 0.6 % (0-2); Eosinophils Absolute Auto 100 /uL (0-450); Eosinophils Percent Auto 1.3 % (2-4); Hematocrit 32.1 % (36-46); Hemoglobin 10.6 g/dL (12.0-16.0); Lymphocytes Absolute Auto 2400 /uL (1100-4500); Lymphocytes Percent Auto 28.2 % (25-40); Mean Corpuscular Hemoglobin 23.6 PG (26-34); Mean Corpuscular Volume 71.3 fL (80-100); Monocytes Absolute Auto 700 /uL (0-900); Monocytes Percent Auto 8.5 % (3-14); Neutrophils Absolute Auto 5300 /uL (1500-7000); Neutrophils Percent Auto 61.4 % (50-75); Platelet Count 252 X10^3/uL (150-400); Red Blood Cell Count 4.51 X10^6/uL (4.0-5.2); White Blood Cell Count 8.6 X10^3/uL (4.5-11.0)
[2020-08-06 16:52] LABS: COVID19 -Nasal RAPID Negative (Negative)
[2020-08-06] MEDS: CEFAZOLIN 1 GM/50 ML FROZ.PIGGY IV (17:20)
--- NOTE | 2020-08-06 18:01 | SUR.OPER ---
Viable male delivered at 1746. Cord blood and placenta sent with L&D nurse.
[2020-08-06 18:51] VITALS: BP 119/86; PULSE 85; RESP 14; TEMP 36.3; O2SAT 99
--- NOTE | 2020-08-06 18:55 | PM.OP.1 ---
Operative Date/Time/Diagnoses Date of procedure: 08/06/20 Time of procedure: 18:55 Pre-op diagnosis: 35 and 4 7th week intrauterine ruptured Post-op diagnosis: same Procedure & Clinicians Procedure: Secondary low-transverse section Same procedure as scheduled: Yes Indications: Thirty-five week intrauterine ruptured Surgeon: Keagan Hardy Instructional Support Services Director: Chasidy Marcos Click Yes if Unassisted: No Anesthesia Type: Spinal Operative Notes Findings: Viable male weighing 4 lb 4 oz Apgars 9 and 9. Normal pelvic organs. Closure Type: primary Specimen(s): none sent Applied: catheter Estimated Blood Loss (mL): 500 Blood products transfused: none Procedure in detail: Patient was taken to the operative theater in wheelchair and placed on the operative table after consent was signed. Placed on table in spinal was undertaken without complication. Excellent results. Patient was placed in the hubbard supine position prepped and draped in the usual manner. A Pfannenstiel incision was then made with sharp dissection down to the fascia. Mostly scar tissue in the subcutaneous tissue. The fascia was then incised in the midline with sharp dissection and then extended with curved scissors. Under direct visualization. Co cores were then used to grasp each side of the upper fascia and bluntly dissected off the muscle layer. The midline was then easily taken down with curved scissors. This was repeated inferiorly without complications. The midline was then entered with blunt dissection at the top of the incision and muscle layer came apart really well. We then noticed the peritoneum which was obvious and it was grasped with hemostats. Under direct visualization scissors were used to enter. Small area and then with blunt dissections it was opened. Bladder blade was then introduced and bladder flap was then undertaken without complications bladder blade was then placed into the bladder flap. Low-transverse incision was then done for scored across the uterus and than entered into the midline with clear fluid. Bladder blade was then removed and incision was then extended bluntly. Head was grasped and baby delivered easily. No nuchal cord. Child was crying aggressively. Bulb suction. Cord was clamped and waited for 30 seconds period and then cut. Handed off to the waiting nurse. No resuscitation was required. Cord bloods were obtained. Placenta was then removed without complications manually. The uterine contents were then swiped with a wet sponge x2. No products of conception were noted. The corners of the uterine incision and the graft with ring forceps along with inferior lip and a ring forceps was then passed through the cervix into the vagina and passed off the operative theater. Closure was then done with 0 chromic running locked with excellent hemostasis we then imbricated with 0 chromic non locked. Running. Irrigation was then done to the abdominal perineal area and removed. Re-evaluated wound small area of bleeding on the midline and then left side pressure was obtained mostly stopped 1 area was burned with electrocautery. Excellent results. 3-0 Vicryl was then used to close the bladder flap 2 areas of small bleeding were used to lock in the midline which seemed to have excellent results. Re-evaluated wound and found to be excellent. Difficult to find all perineum fell was not close period 3 2 0 Vicryl sutures were used to approximate the muscle layer. Fascia was closed with running 0 Vicryl. Irrigation was done to the subcutaneous tissue. 330 Vicryl interrupted sutures were used to approximate the wound edge subcutaneously. Closed with running 4-0 Vicryl subcuticular period Steri-Strips and dressing was applied. EBL 500 cc. Mother and infant in stable condition. Complications: none Post-operative Condition: stable Disposition: Acute Care Plan for aftercare: Patient be transferred to labor and delivery for routine care
[2020-08-06 18:56] VITALS: BP 113/79; PULSE 86; RESP 14; O2SAT 97
[2020-08-06] MEDS: ACETAMINOPHEN 325 MG TABLET 650 MG PO (18:57)
[2020-08-06 19:02] VITALS: BP 113/66; PULSE 87; RESP 14; O2SAT 99
--- NOTE | 2020-08-06 19:31 | PM.OBHP.1 ---
OB HPI Date/Time Date of admission: 08/06/20 Date Patient Seen: 08/06/20 Time Patient Seen: 17:15 History of Present Condition Chief complaint: OBSERVATION : 4 Para: 2 Estimated Date of Delivery: 09/06/20 Estimated Gestational Age (weeks): Thirty Narrative: Harper Moore is a 24 year old female who presents with questionable rupture since last night approximately 10:00 a.m.. Clear fluid. Was seen earlier today and had negative AmniSure then went home and had moderate amount of leaking through her pants. Returned. Baby has been moving well. No fevers. Always clear fluid. No contractions. Otherwise feeling well. Indications Operative indications ( section): previous uterine surgery Other reason(s) for admission: Thirty-five for 7th week intrauterine pregnancies with rupture History of Present care: good care Dating criteria: LMP confirmed by 1st trimester US Ultrasounds: normal 1st trimester US and normal mid trimester US Obstetrical complications: none Medical complications: none Preadmission Labs Blood type: B (+) positive -: Antibody screen: negative, Cystic fibrosis screen: negative, GBS status: negative, HBsAG: negative, HIV: negative, HSV 1: negative, HSV 2: negative and RPR/VDLR: negative -: Chlamydia screen: not detected and Gonorrhea screen: not detected -: Rubella: immune and Varicella: immune HCAB: negative PAP: Normal Cell-free DNA: Normal male no evidence of abnormality 1 hr GTT: 111 Prior (ies) History: 05/28/2014 39.5 weeks [facility] female 7 lb 14 oz 6\28\18 38 week week on [facility] male 6 lb 7 oz Miscarriage4\19\17 Evaluation Evaluation Laboratory results: Laboratory Tests 08/06/20 08/06/20 08/06/20 16:00 16:00 16:00 WBC 8.6 RBC 4.51 Hgb 10.6 L Hct 32.1 L MCV 71.3 L MCH 23.6 L MCHC 33.0 RDW 13.0 Plt Count 252 Neut % (Auto) 61.4 Lymph % (Auto) 28.2 [place] % (Auto) 8.5 Eos % (Auto) 1.3 L Baso % (Auto) 0.6 Neut # (Auto) 5300 Lymph # (Auto) 2400 [place] # (Auto) 700 Eos # (Auto) 100 Baso # (Auto) 0 SARS-CoV-2 (PCR) Negative Blood Type B Positive Antibody Screen Negative [facility] Medical History (Updated 07/15/20 @ 12:24 by Bev Garcia PA-C) URI (upper respiratory infection) Surgical History Status post delivery (05/28/14) Social History household members: spouse and children Smoking Status: Never smoker alcohol intake: never Meds Home Medications and Allergies Home Medications Medication Instructions Recorded Confirmed Type fluoxetine [Prozac] 40 mg PO DAILY 01/07/18 08/06/20 History Allergies Allergy/AdvReac Type Severity Reaction Status Date / Time clindamycin Allergy Severe Hives Verified 07/27/20 21:54 citalopram Allergy Intermediate Verified 07/27/20 21:55 sumatriptan [From Imitrex] Allergy Intermediate Verified 07/27/20 21:55 Exam Vital Signs (past 8 hours): - 08/06/20 16:38 08/06/20 18:51 08/06/20 18:56 Temperature 97.3 F L Pulse Rate 85 86 Respiratory Rate 14 14 Blood Pressure 120/71 119/86 113/79 Pulse Oximetry 99 97 08/06/20 19:02 Temperature Pulse Rate 87 Respiratory Rate 14 Blood Pressure 113/66 Pulse Oximetry 99 Oxygen Delivery Method Room Air Narrative Exam Narrative: Alert smiling female in no acute distress lungs are clear heart regular rate and rhythm abdomen is gravid vertex grossly ruptured extremities unremarkable neurologic exam normal with normal reflexes Objective Labs Result Diagrams: 08/06/20 16:00 Labs: Laboratory Results - last 24 hr 08/06/20 08/06/20 08/06/20 16:00 16:00 16:00 WBC 8.6 RBC 4.51 Hgb 10.6 L Hct 32.1 L MCV 71.3 L MCH 23.6 L MCHC 33.0 RDW 13.0 Plt Count 252 Neut % (Auto) 61.4 Lymph % (Auto) 28.2 [place] % (Auto) 8.5 Eos % (Auto) 1.3 L Baso % (Auto) 0.6 Neut # (Auto) 5300 Lymph # (Auto) 2400 [place] # (Auto) 700 Eos # (Auto) 100 Baso # (Auto) 0 SARS-CoV-2 (PCR) Negative Blood Type B Positive Antibody Screen Negative Assessment and Plan Assessment and Plan Assessment and Plan narrative: Thirty-five and 4 7th week intrauterine ruptured with previous history of C-sections emergency section
--- NOTE | 2020-08-06 22:04 | PM.PN.1 ---
Subjective Subjective Date Patient Seen: 08/06/20 Time Patient Seen: 22:04 Interval history: Called to see patient for progressive leaking in bandage. Patient is feeling well. Pain is well controlled. No lochia. Blood pressure is stable. Patient has had a slight increase in pulse. Exam Vital Signs (past 8 hours): - 08/06/20 16:38 08/06/20 18:51 08/06/20 18:56 Temperature 97.3 F L Pulse Rate 85 86 Respiratory Rate 14 14 Blood Pressure 120/71 119/86 113/79 Pulse Oximetry 99 97 08/06/20 19:02 Temperature Pulse Rate 87 Respiratory Rate 14 Blood Pressure 113/66 Pulse Oximetry 99 Oxygen Delivery Method Room Air Narrative Exam Narrative: Alert female in no acute distress skin shows normal turgor. Capillary refill is good. Color appears normal. Uterus is firm minimally tender. Bandage is removed in moderate amount of blood. Seems to be leaking a little bit from the right side. Dressing and pressure dressing were applied. Objective Labs Result Diagrams: 08/06/20 16:00 Labs: Laboratory Results - last 24 hr 08/06/20 08/06/20 08/06/20 16:00 16:00 16:00 WBC 8.6 RBC 4.51 Hgb 10.6 L Hct 32.1 L MCV 71.3 L MCH 23.6 L MCHC 33.0 RDW 13.0 Plt Count 252 Neut % (Auto) 61.4 Lymph % (Auto) 28.2 [place] % (Auto) 8.5 Eos % (Auto) 1.3 L Baso % (Auto) 0.6 Neut # (Auto) 5300 Lymph # (Auto) 2400 [place] # (Auto) 700 Eos # (Auto) 100 Baso # (Auto) 0 SARS-CoV-2 (PCR) Negative Blood Type B Positive Antibody Screen Negative [facility] Medical History (Updated 07/15/20 @ 12:24 by Bev Garcia PA-C) URI (upper respiratory infection) Surgical History Status post delivery (05/28/14) Social History household members: spouse and children Smoking Status: Never smoker alcohol intake: never Assessment & Plan Assessment & Plan narrative: Incisional bleeding. I suspect this is probably from the skin but it is difficult to tell. Certainly was very dry with no bleeders in subcutaneous tissue on closing. We re-evaluated and redressed and will see what happens. If continues to leak will need to take back to the OR tonight. Will see how things go. Vital signs are also stable so I suspect this is not a significant bleed in any other location. An all superficial.
[2020-08-07] MEDS: DEXTROSE 5%-LACTATED RINGERS 1,000 ML 125 ML IV (00:36)
[2020-08-07] MEDS: KETOROLAC 30 MG/ML VIAL IV ×3 (00:45→12:44)
[2020-08-07] MEDS: ACETAMINOPHEN 325 MG TABLET 650 MG PO ×4 (00:46→18:51)
[2020-08-07 06:45] LABS: Hematocrit 25.1 % (36-46); Hemoglobin 8.2 g/dL (12.0-16.0)
--- NOTE | 2020-08-07 08:40 | PM.PN.1 ---
Subjective Subjective Date Patient Seen: 08/07/20 Time Patient Seen: 08:40 Interval history: Patient actually feeling better today her incision is dry. And does not feel like there is any bleeding. Her pain is well controlled with minimal oral medicines and Toradol. No significant vaginal bleeding. No other changes. Exam Vital Signs (past 8 hours): Oxygen Delivery Method Room Air Narrative Exam Narrative: Alert female lying in bed smiling in no acute distress. Lungs lungs are clear. Heart regular rate and rhythm. Extremities show no tenderness. Incision is clean and dry. Uterus is mildly tender at umbilicus. Objective Labs Result Diagrams: 08/07/20 06:35 Labs: Laboratory Results - last 24 hr 08/06/20 08/06/20 08/06/20 16:00 16:00 16:00 WBC 8.6 RBC 4.51 Hgb 10.6 L Hct 32.1 L MCV 71.3 L MCH 23.6 L MCHC 33.0 RDW 13.0 Plt Count 252 Neut % (Auto) 61.4 Lymph % (Auto) 28.2 [place] % (Auto) 8.5 Eos % (Auto) 1.3 L Baso % (Auto) 0.6 Neut # (Auto) 5300 Lymph # (Auto) 2400 [place] # (Auto) 700 Eos # (Auto) 100 Baso # (Auto) 0 SARS-CoV-2 (PCR) Negative Blood Type B Positive Antibody Screen Negative 08/07/20 06:35 WBC RBC Hgb 8.2 L Hct 25.1 L MCV MCH MCHC RDW Plt Count Neut % (Auto) Lymph % (Auto) [place] % (Auto) Eos % (Auto) Baso % (Auto) Neut # (Auto) Lymph # (Auto) [place] # (Auto) Eos # (Auto) Baso # (Auto) SARS-CoV-2 (PCR) Blood Type Antibody Screen [facility] Medical History (Updated 07/15/20 @ 12:24 by Bev Garcia PA-C) URI (upper respiratory infection) Surgical History Status post delivery (05/28/14) Social History household members: spouse and children Smoking Status: Never smoker alcohol intake: never Assessment & Plan Assessment & Plan narrative: Postop day 1. Doing well. Incision seems to be not bleeding I think that was all superficial and seems to be doing well. Hematocrit stable expected stay. Will add on iron. Otherwise routine care and follow-up in a.m..
--- NOTE | 2020-08-07 17:54 | P.PN_ITS ---
Subjective Subjective Date Patient Seen: 08/07/20 Time Patient Seen: 17:54 Interval history: Doing well. No major issues. Pain is well controlled. Is not nauseated. Has not needed any other pain pills other than ibuprofen. Bleeding is minimal. Incision is dry. Exam Vital Signs (past 8 hours): Oxygen Delivery Method Room Air Narrative Exam Narrative: Alert female in no acute distress Uterus is firm. Incision is dry. Objective Labs Result Diagrams: 08/07/20 06:35 Labs: Laboratory Results - last 24 hr 08/06/20 08/07/20 16:00 06:35 Hgb 8.2 L Hct 25.1 L Blood Type B Positive Antibody Screen Negative [facility] Medical History (Updated 07/15/20 @ 12:24 by Bev Garcia PA-C) URI (upper respiratory infection) Surgical History Status post delivery (05/28/14) Social History household members: spouse and children Smoking Status: Never smoker alcohol intake: never Assessment & Plan Assessment & Plan narrative: Doing well. Probable discharge tomorrow. No other changes.
[2020-08-07] MEDS: FERROUS SULFATE 325 MG TABLET PO (18:50)
[2020-08-07] MEDS: IBUPROFEN 600 MG TABLET PO (18:50)
[2020-08-07] MEDS: HYDROCODONE/ACET 5/325 TABLET 1 TAB PO (20:02)
[2020-08-08] MEDS: ACETAMINOPHEN 325 MG TABLET 650 MG PO (01:19)
[2020-08-08] MEDS: IBUPROFEN 600 MG TABLET PO ×3 (01:20→18:28)
[2020-08-08] MEDS: HYDROCODONE/ACET 5/325 TABLET 1 TAB PO ×4 (01:39→17:51)
[2020-08-08] MEDS: FERROUS SULFATE 325 MG TABLET PO ×2 (08:19→17:51)
[2020-08-08] MEDS: DOCUSATE 250 MG CAPSULE PO (08:20)
[2020-08-08] MEDS: FLUoxetine 20 MG CAPSULE 40 MG PO (08:22)
[2020-08-08] MEDS: FLUoxetine 20 MG CAPSULE PO (09:02)
--- NOTE | 2020-08-08 12:42 | PM.OBPN.1 ---
Subjective - OB Subjective Date Patient Seen: 08/08/20 Time Patient Seen: 12:43 Exam Vital Signs (past 8 hours): Oxygen Delivery Method Room Air Narrative Exam Narrative: General: NAD Skin: Color unremarkable, no rash nor lesions HEENT: Neck supple with midline trachea Lungs: CTAB Heart: Normal rate and regular rhythm, S1, S2 normal, no murmurs, click, rub or gallop Abdomen: FF, U-1, soft, non-tender, +BS. Incision with Steri-Strips in place, clean, dry, intact. Extremities: No edema, no cyanosis Objective Labs Result Diagrams: 08/07/20 06:35 Assessment & Plan Plan day: 2 plan OB: routine postop care Comments: Plan for discharge tomorrow. Time Spent With Patient Time: Total time spent is greater than 50% in coordination of care (as documented) at patient's floor/unit and/or counseling patient:
[2020-08-08] MEDS: LANOLIN OINT 7 GM 1 APPLIC TOP (14:17)
--- NOTE | 2020-08-08 19:03 | PM.OBDS.1 ---
Discharge Providers Provider Date of admission: 08/06/20 15:10 Discharge Date: 08/08/20 Primary care physician: Keagan Hardy MD Consults: 08/06/20 20:39 Consult to Vocational Horticulture Instructor Routine Comment: Discharge provider: Marry Peguero MD Summary Hospital Course Date Patient Seen: 08/08/20 Time Patient Seen: 12:30 Procedures: 1. R/LTCS at 35w4d secondary to PPROM, 08/06/20, Dr. Hardy, no complications 2. Spinal, 08/06/20, no complications. Hospital Course: Unremarkable. Mother is and bottlefeeding well. Tolerating full diet with no nausea vomiting. Ambulating well. Lochia less than menses. On day of discharge, she is afebrile with stable vital signs throughout. Discharge diagnoses: 1. 24 yo 2. Status post R/LTCS at 35w4d 3. Depression 4. Migraines Time spent on Discharge and Coordination of post-hospital care: 35 minutes Time Spent with Patient Time attestation: Total time spent providing and/or coordinating discharge services: Objective Labs Result Diagrams: 08/07/20 06:35 Exam Vital Signs (past 8 hours): Oxygen Delivery Method Room Air Narrative Exam Narrative: General: NAD Skin: Color unremarkable, no rash nor lesions HEENT: Neck supple with midline trachea Lungs: CTAB Heart: Normal rate and regular rhythm, S1, S2 normal, no murmurs, click, rub or gallop Abdomen: FF, U-2, soft, non-tender, +BS, incision c/d/oi. Extremities: No edema, no cyanosis Discharge Plan Discharge Plan Patient Disposition: Home Discharge orders & Medications Prescriptions: New hydrocodone-acetaminophen 5-325 mg Tablet 1 tab PO Q4HR PRN (Reason: Pain, Moderate (4-6)) Qty: 45 RF: 0 ibuprofen 600 mg Tablet 600 mg PO Q6HR PRN (Reason: Fever/Mild Pain (1-3)) Qty: 90 RF: 1 Continued fluoxetine [Prozac] 40 mg capsule 40 mg PO DAILY RF: 0 Follow up/Referrals: Keagan Hardy MD [Primary Care Provider] - Diet/Activity/Treatments Diet: Diet as Tolerated Activity: 1. Routine care 2. No driving for 2 weeks. 3. Call or return for uncontrolled pain, fever, intractable nausea or vomiting, trouble with urination, heavy vaginal bleeding greater than 1 pad per hour, suicidal/homicidal thoughts, signs or symptoms of infection, or any other concerns. Discharge Data Primary Care Provider: Keagan Hardy
[2020-08-09] MEDS: IBUPROFEN 600 MG TABLET PO ×2 (00:37→08:08)
[2020-08-09] MEDS: HYDROCODONE/ACET 5/325 TABLET 1 TAB PO ×2 (00:37→08:09)
[2020-08-09] MEDS: DOCUSATE 250 MG CAPSULE PO (08:09)
[2020-08-09] MEDS: FLUoxetine 20 MG CAPSULE 60 MG PO (08:09)
[2020-08-09] MEDS: FERROUS SULFATE 325 MG TABLET PO (08:09)
--- NOTE | 2020-08-09 09:40 | PC.ADMIT ---
[id number] [facility] [address] 14 Admission Note: The patient,Harper Moore,24 y/o, was given written information regarding hospital policies, unit procedures and contact persons. Patient's smoking status: Never smoker.
== END 2020-08-09 09:45 | disposition home or self-care (01) | DRG 788 ==
PROVIDERS: Admitting Provider Family Medicine; Family Provider Family Medicine; PCP Family Medicine; Referring Provider Family Medicine; Visit Provider Family Medicine
PROC: 10D00Z1 Extraction of Products of Conception, Low, Open Approach (ICD-10-PCS; CPT 59514; principal; 2020-08-06 17:30)
DX: O42.013 Preterm premature rupture of membranes, onset of labor within 24 hours of rupture, third trimester (principal); O26.893 Other specified pregnancy related conditions, third trimester; N89.3 Dysplasia of vagina, unspecified; O26.23 Pregnancy care for patient with recurrent pregnancy loss, third trimester; Z3A.35 35 weeks gestation of pregnancy; Z37.0 Single live birth; Z20.822 Contact with and (suspected) exposure to COVID-19
CPT/HCPCS: 36415; 59025; 59050; 84112; 85014; 85018; 85025; 86850; 86900; 86901; 87635; C9803; G0378; G0379; J1885; J2274; J2590; J3010; J7121

== ENCOUNTER → 2020-10-18 13:02 | Outpatient (CLI) | payer OTHER, MEDICAID, SELFPAY ==
[2020-08-22 11:43] VITALS: BMI 19.6
[2020-10-18 13:30] LABS: COVID19 -Nasal RAPID Negative (Negative)
== END ==
PROVIDERS: Family Provider Family Medicine; PCP Family Medicine; Visit Provider Physician Assistant
DX: Z20.822 Contact with and (suspected) exposure to COVID-19 (principal)
CPT/HCPCS: 87635

== ENCOUNTER → 2020-11-19 15:36 | Outpatient (CLI) | payer OTHER, MEDICAID, SELFPAY ==
[2020-08-22 11:43] VITALS: BMI 19.6
[2020-11-19 15:59] LABS: COVID19 -Nasal RAPID Negative (Negative)
== END ==
PROVIDERS: Family Provider Family Medicine; PCP Family Medicine; Visit Provider Physician Assistant
DX: J02.9 Acute pharyngitis, unspecified (principal); R05 Cough; R51.9 Headache, unspecified; R52 Pain, unspecified; R68.83 Chills (without fever)
CPT/HCPCS: 87635

== ENCOUNTER → 2021-04-10 10:20 | Outpatient (CLI) | payer OTHER, MEDICAID, SELFPAY ==
[2020-08-22 11:43] VITALS: BMI 19.6
[2021-04-10 10:59] LABS: COVID19 -Nasal RAPID Negative (Negative)
== END ==
PROVIDERS: Family Provider Family Medicine; PCP Family Medicine; Visit Provider Nurse Practitioner
DX: Z20.822 Contact with and (suspected) exposure to COVID-19 (principal); B94.8 Sequelae of other specified infectious and parasitic diseases; R05 Cough; R43.9 Unspecified disturbances of smell and taste
CPT/HCPCS: 87635

== ENCOUNTER 2022-12-14 09:04 | Emergency (ER) | payer OTHER, MEDICAID, SELFPAY ==
[2020-08-22 11:43] VITALS: BMI 19.6
[2022-12-14 09:06] VITALS: BP 109/68; PULSE 90; RESP 18; TEMP 36.3; O2SAT 100; BMI 18.8
[2022-12-14 09:44] LABS: Strep Grp A by PCR Rapid Negative (Negative)
[2022-12-14 09:46] LABS: COVID19 -Nasal RAPID Negative (Negative)
[2022-12-14 10:15] VITALS: BP 103/64; PULSE 81; RESP 18; O2SAT 100
--- NOTE | 2022-12-14 10:22 | ED_ITS ---
HPI - URI/Sore Throat <Evans Veloz PA-C - Last Filed: 12/14/22 10:27> General Chief Complaint: Upper Respiratory Symptoms Stated Complaint: T-21 cough/stuffy nose/RT ear pressure/no hearing Time Seen by Provider: 12/14/22 10:07 Source: patient Mode of arrival: Ambulatory History of Present Illness HPI Narrative: 27-year-old female with no reported past medical history presents to the ED with right-sided ear fullness, ear pain, muffled hearing. Patient states that she has had a URI with symptoms including a sore throat, cough, right-sided ear fullness, muffled hearing, right ear pain. Patient denies fever, chills, chest pain, shortness of breath, nausea, vomiting, diarrhea. Related Data Previous Rx's Medication Instructions Recorded amoxicillin 875 mg tablet 875 mg PO BID 7 days #14 tabs 12/14/22 benzonatate 200 mg capsule 200 mg PO TID PRN cough 10 days 12/14/22 #30 caps Allergies Allergy/AdvReac Type Severity Reaction Status Date / Time clindamycin Allergy Severe Hives Verified 12/14/22 09:12 citalopram Allergy Intermediate Verified 12/14/22 09:12 sumatriptan [From Imitrex] Allergy Intermediate Verified 12/14/22 09:12 Review of Systems <Evans Veloz PA-C - Last Filed: 12/14/22 10:27> Review of Systems ROS Unobtainable: All systems reviewed & are unremarkable except as noted in HPI and below Constitutional Constitutional: Denies chills, Denies fatigue, Denies fever(s), Denies frequent falls, Denies lethargy and Denies weakness Eyes Eyes: Denies change in vision, Denies eye discharge, Denies irritation and Denies loss of vision ENT Ears, Nose, Mouth, and Throat: Denies change in voice, Denies dizziness, Reports otalgia, Reports hearing loss, Denies neck pain, Reports sore throat and Denies throat swelling Cardiovascular Cardiovascular: Denies chest pain, Denies irregular heart rhythm, Denies lightheadedness, Denies palpitations, Denies dyspnea, Denies dyspnea on exertion and Denies orthopnea Respiratory Respiratory: Reports cough, Denies dyspnea, Denies dyspnea on exertion and Denies wheezing Gastrointestinal Gastrointestinal: Denies abdominal pain, Denies change in bowel habits, Denies diarrhea, Denies nausea and Denies vomiting Genitourinary Genitourinary: Denies hematuria, Denies flank pain, Denies urinary incontinence and Denies urinary urgency Musculoskeletal Musculoskeletal: Denies back pain, Denies muscle weakness, Denies neck pain, Denies numbness and Denies tingling Integumentary/Breasts Skin/Breast: Denies pruritus, Denies erythema, Denies rash and Denies wounds Neurologic Neurologic: Denies behavioral changes, Denies confusion, Denies dizziness, Denies frequent falls, Denies loss of vision, Denies numbness, Denies tingling and Denies weakness Psychiatric Psychiatric: Denies anxiety, Denies behavioral changes, Denies confusion, Denies depression, Denies homicidal ideation and Denies suicidal ideation Endocrine Endocrine: Denies fatigue, Denies flushing and Denies palpitations Hematologic/Lymphatic Hematologic/Lymphatic: Denies easy bruising Allergic/Immunologic Allergic/Immunologic: Denies urticaria, Denies throat swelling and Denies wheezing Patient History <Evans Veloz PA-C - Last Filed: 12/14/22 10:27> Medical History Bronchitis URI (upper respiratory infection) Surgical History Status post delivery (05/28/14) Social History household members: spouse and children Smoking Status: Current every day smoker alcohol intake: never Smoking Status: Current every day smoker alcohol intake frequency: 0-2 drinks per day Substance Use Type: does not use Exam <Evans Veloz PA-C - Last Filed: 12/14/22 10:27> Narrative Exam Narrative: Const General:?cooperative, healthy appearing and comfortable [facility] Head:?normal to inspection Ears:?hearing grossly normal bilaterally; right tympanum appears swollen, erythematous; left tympanum is normal Nose:?external nose normal Face and sinus:?normal facial exam and sinuses nontender Mouth:?oral mucosae normal Throat:?posterior oropharynx normal Eyes General:?appearance normal, both eyes and all related structures Neck Neck:?normal visual inspection and no lymphadenopathy noted Resp Effort & Inspection:?normal respiratory effort Auscultation:?clear to auscultation bilaterally Cardio Rate:?regular rate Rhythm:?regular rhythm Neuro General:?patient alert, patient awake and patient oriented x3 Initial Vital Signs Initial Vital Signs: Vital Signs Temperature 97.3 F L 12/14/22 09:06 Pulse Rate 90 12/14/22 09:06 Respiratory Rate 18 12/14/22 09:06 Blood Pressure 109/68 12/14/22 09:06 Pulse Oximetry 100 12/14/22 09:06 Oxygen Delivery Method Room Air 12/14/22 09:06 <Hailee Beach DO - Last Filed: 12/14/22 19:41> Initial Vital Signs Initial Vital Signs: Vital Signs Temperature 97.3 F L 12/14/22 09:06 Pulse Rate 90 12/14/22 09:06 Respiratory Rate 18 12/14/22 09:06 Blood Pressure 109/68 12/14/22 09:06 Pulse Oximetry 100 12/14/22 09:06 Oxygen Delivery Method Room Air 12/14/22 09:06 Course <Evans Veloz PA-C - Last Filed: 12/14/22 10:27> Orders Ordered: ED Orders 12/14/22 09:17 COVID19 -Nasal RAPID Stat Strep Grp A by PCR Rapid Stat Vital Signs Vital signs: Vital Signs - 8 hr 12/14/22 09:06 12/14/22 10:15 Temperature 97.3 F L Pulse Rate 90 81 Respiratory Rate 18 18 Blood Pressure 109/68 103/64 Pulse Oximetry 100 100 Oxygen Delivery Method Room Air Room Air <DO Maral Louis Last Filed: 12/14/22 19:41> Orders Ordered: ED Orders 12/14/22 09:17 COVID19 -Nasal RAPID Stat Strep Grp A by PCR Rapid Stat Vital Signs Vital signs: Vital Signs - 8 hr 12/14/22 09:06 12/14/22 10:15 Temperature 97.3 F L Pulse Rate 90 81 Respiratory Rate 18 18 Blood Pressure 109/68 103/64 Pulse Oximetry 100 100 Oxygen Delivery Method Room Air Room Air MDM - URI/Sore Throat <SHERIE Lamb Last Filed: 12/14/22 10:27> Lab Data Labs: Lab Results 05/29/23 05/29/23 Range/Units 09:17 09:17 SARS-CoV-2 (PCR) Negative (Negative) Group A Strep (PCR) Negative (Negative) MDM Narrative Medical decision making narrative: 27-year-old female with no reported past medical history presents to the ED with right-sided ear fullness, ear pain, muffled hearing. Physical exam is concerning for right-sided otitis media. COVID and strep negative. Will treat with antibiotics, Tessalon Perles for cough. Recommend Flonase [id number]. Recommend follow-up with PCP as soon as possible. ED return precautions were discussed with patient. Patient verbalized understanding. Medical records reviewed: Yes <Hailee Beach DO - Last Filed: 12/14/22 19:41> Lab Data Labs: Lab Results 12/14/22 12/14/22 Range/Units 09:17 09:17 SARS-CoV-2 (PCR) Negative (Negative) Group A Strep (PCR) Negative (Negative) Discharge Plan Departure Patient Disposition: Home Clinical Impression: Otitis media Instructions: Middle Ear Infection Activity Restrictions/Additional Instructions: You were evaluated in the ED today for right-sided ear pain, hearing loss, cough. You are being prescribed an antibiotic for a your infection. Please complete the antibiotics as prescribed. You were also being prescribed Tessalon Perles for cough. You may also take Flonase which is [id number] to ease your symptoms. Please follow-up with your PCP as soon as possible. Return to the ED if you have worsening symptoms including shortness of breath, chest pain. Prescriptions: New amoxicillin 875 mg tablet 875 mg PO BID 7 Days Qty: 14 0RF benzonatate 200 mg capsule 200 mg PO TID PRN (Reason: cough) 10 Days Qty: 30 0RF Referrals: Keagan Hardy MD [Primary Care Provider] - Stand Alone Forms: Patient Portal/API <Hailee Beach DO - Last Filed: 12/14/22 19:41> Cosign ED Attending Cosbrettature Attestation: I was immediately available in the department for consultation. Documentation has been reviewed.
== END 2022-12-14 10:25 | disposition home or self-care (01) ==
PROVIDERS: Emergency Medicine; Emergency Provider Student in an Organized Health Care Education/Training Program; Family Provider Family Medicine; PCP Family Medicine
DX: H66.91 Otitis media, unspecified, right ear (principal); Z20.822 Contact with and (suspected) exposure to COVID-19
CPT/HCPCS: 87635; 87651; 99281; 99282; C9803

== ENCOUNTER → 2023-09-06 09:18 | Outpatient (CLI) | payer OTHER, MEDICAID, SELFPAY ==
[2020-08-22 11:43] VITALS: BMI 19.6
--- NOTE | 2023-09-06 | DI.US.S_ITS ---
PROCEDURE: US ABDOMEN LIMITED INDICATIONS: POSTOPERATIVE INCISIONAL LUMP TECHNIQUE: Real-time focused scanning was performed of the abdomen, with image documentation. COMPARISON: None. FINDINGS: Focal heterogeneous masslike lesion measuring 1.6 x 1.2 x 1.5 cm with mild internal vascularity. This is located just superior to the prior scar. IMPRESSION: Focal heterogeneous masslike lesion measuring 1.6 x 1.2 x 1.5 cm with mild internal vascularity located just superior to the prior scar. Differential includes scar versus a mass. Recommend short interval follow-up versus tissue sampling for further evaluation. Dictated by: Aminah Jeffery M.D. on 09/06/2023 at 10:02 Approved by: Aminah Jeffery M.D. on 09/06/2023 at 15:29
== END ==
LOC: US 09:19
PROVIDERS: Family Provider Family Medicine; PCP Family Medicine; Referring Provider Family Medicine; Visit Provider Family Medicine
DX: K43.2 Incisional hernia without obstruction or gangrene (principal); R19.09 Other intra-abdominal and pelvic swelling, mass and lump
CPT/HCPCS: 76705

== ENCOUNTER → 2023-09-13 10:46 | Outpatient (CLI) | payer OTHER, MEDICAID, SELFPAY ==
[2020-08-22 11:43] VITALS: BMI 19.6
--- NOTE | 2023-09-13 | DI.MRI.S_ITS ---
PROCEDURE: MR PELVIS WO/W CON INDICATIONS: Right lower quadrant abdominal swelling, mass and TECHNIQUE: Coronal HASTE, sagittal breath-hold T2 FSE; axial T1 FSE with and without fat saturation through the pelvis. Optional long- and short-axis uterine nonbreath-hold T2 FSE through the uterus. Sagittal or axial dynamic VIBE during administration of contrast. Post-contrast axial or coronal VIBE/2-D FLASH with fat saturation from the iliac crests to the symphysis. Optional diffusion weighted imaging and ADC may be performed. COMPARISON: [facility], , US ABDOMEN LIMITED, 09/06/2023, 9:27. FINDINGS: Image quality: Excellent. Uterus: Uterus is normal in size. Endometrium is normal in thickness. Junctional zone is normal in thickness at 12 mm or less. scar present. Adnexa: Both ovaries are normal in size, without suspicious cystic or solid lesions. Urinary system: Bladder wall is normal in thickness. Distal ureters are non distended. Urethra appears normal in morphology. Nodes and vessels: No pelvic or inguinal adenopathy by size criteria. Iliac vessels are normal in size. Bowel and peritoneum: No pathologic free pelvic fluid. Inferior colon and small bowel loops are normal in caliber. Soft tissues: No inguinal hernias. No findings of pelvic floor incompetence in the absence of provocation. In the superficial tissues of the right lower quadrant, there is a T1 hyperintense lesion measuring 1.2 x 1.3 cm, corresponding to sonographic findings. This region demonstrates mild restricted diffusion, without definite enhancement. Bones: Marrow demonstrates normal overall signal. IMPRESSION: The right lower quadrant soft tissue mass has internal T1 hyperintense properties, suggestive of hemorrhage. Findings may indicate endometriosis. Dictated by: Vicente Owen M.D. on 09/13/2023 at 13:07 Approved by: Vicente Owen M.D. on 09/13/2023 at 13:12
== END ==
PROVIDERS: Family Provider Family Medicine; PCP Family Medicine; Referring Provider Family Medicine; Visit Provider Family Medicine
DX: R19.03 Right lower quadrant abdominal swelling, mass and lump (principal)
CPT/HCPCS: 72197

== ENCOUNTER → 2025-04-04 15:19 | Outpatient (CLI) | payer OTHER, SELFPAY ==
[2020-08-22 11:43] VITALS: BMI 19.6
[2025-04-04 15:51] LABS: Add Manual Diff / Slide Review NO; Hematocrit 33.3 % (36-46); Hemoglobin 11.1 g/dL (12.0-16.0); Lymphocytes Absolute Auto 1800 /uL (1100-4500); Mean Corpuscular HGB Conc 33.4 % (30-36); Mean Corpuscular Hemoglobin 23.6 PG (26-34); Mean Corpuscular Volume 70.6 fL (80-100); Platelet Count 287 X10^3/uL (150-400)
[2025-04-04 16:20] LABS: Alanine Aminotransferase 16 IU/L (<35); Blood Urea Nitrogen 14 mg/dL (7-17); Estimated Glomerular Filt Rate > 60 mL/min (>60); Uric Acid 3.4 mg/dL (2.5-6.2)
[2025-04-04 16:21] LABS: Hemoglobin A1C% w Est Avg Glu 4.8 % (4.0-6.0)
[2025-04-04 16:36] LABS: Natera Collection Specimen Collected
[2025-04-05 15:44] LABS: HIV 1 & 2 Ab/Ag 4th Gen Combo NEGATIVE (NEGATIVE); Hep C Virus Ab w/Reflex Quant NEGATIVE s/c (NEGATIVE); Hepatitis B Surface Antigen NEGATIVE s/c (NEGATIVE)
== END ==
PROVIDERS: PCP Family Medicine; Referring Provider Obstetrics & Gynecology; Visit Provider Obstetrics & Gynecology
DX: O09.899 Supervision of other high risk pregnancies, unspecified trimester (principal); O09.299 Supervision of pregnancy with other poor reproductive or obstetric history, unspecified trimester; E28.2 Polycystic ovarian syndrome
CPT/HCPCS: 36415; 80055; 82565; 83036; 84450; 84460; 84520; 84550; 86787; 86803; 86850; 86900; 86901; 87086; 87389

== ENCOUNTER → 2025-05-02 11:53 | Outpatient (CLI) | payer OTHER, SELFPAY ==
[2020-08-22 11:43] VITALS: BMI 19.6
== END ==
PROVIDERS: PCP Family Medicine; Visit Provider Obstetrics & Gynecology
DX: N94.89 Other specified conditions associated with female genital organs and menstrual cycle (principal); N89.8 Other specified noninflammatory disorders of vagina
CPT/HCPCS: 81514; 87086